=== PATIENT | female | born 1955 | race Caucasian/White ===

== ENCOUNTER → 2018-11-11 | Outpatient (CLI) | payer OTHER ==
--- NOTE | 2018-11-11 15:52 | XR ---
EXAMINATION TYPE: XR chest 2V DATE OF EXAM: 11/11/2018 COMPARISON: Prior chest x-ray 03/14/2012 HISTORY: Presurgical testing, history COPD TECHNIQUE: Frontal and lateral views of the chest are obtained. FINDINGS: There is no focal air space opacity, pleural effusion, or pneumothorax seen. The cardiac silhouette size is within normal limits. There is a spinal curvature as on prior. The aorta is dense . Prominent lung lines are again noted. There is flattening of hemidiaphragms. The osseous structures are intact. IMPRESSION: No acute cardiopulmonary process.
== END | disposition home or self-care (01) ==
LOC: LABWHC1 13:34
PROVIDERS: ATTEND Orthopaedic Surgery
DX: Z01.812 Encounter for preprocedural laboratory examination (principal); M16.12 Unilateral primary osteoarthritis, left hip; R06.02 Shortness of breath
CPT/HCPCS: 71046; 87070

== ENCOUNTER 2018-11-23 10:07 | Inpatient (IN) | payer OTHER ==
--- NOTE | 2018-11-23 08:41 | HP ---
HISTORY AND PHYSICAL CHIEF COMPLAINT: Left hip pain. HISTORY OF PRESENT ILLNESS: Patient is a 63-year-old female who presents with progressive left hip pain for the past several years. It has worsened recently. She is having a difficult time with weightbearing. She has been using a cane. She takes multiple medications for her back. PAST MEDICAL HISTORY: Significant for COPD, depression, arthritis, reflux disease and chronic back pain. PAST SURGICAL HISTORY: Significant for previous knee replacement in addition to a lumbar fusion and breast surgery. CURRENT MEDICATIONS: 1. Celexa. 2. Lyrica. 3. Oral morphine. 4. Seroquel. She has allergies to ROBAXIN. FAMILY HISTORY: Significant for cancer. SOCIAL HISTORY: Significant for tobacco use; however, she claims to have quit in December of 2017. REVIEW OF SYSTEMS: A 16 point review of systems otherwise reviewed and is noncontributory. PHYSICAL EXAMINATION: The patient is approximately 5 foot 8, 145 pounds of ectomorphic habitus. HEENT exam is nonfocal. Neck is supple. Passive motion left hip, flexion 70 degrees, external rotation with hip flex 30 degrees, internal rotation is 0 degrees with pain. She has diffuse anterior tenderness. She has moderate weakness with hip flexion and abduction. She does have an antalgic gait pattern. Her distal neurovascular appears intact in the left lower extremity. MRI report for 09/23/2018 of the left hip shows avascular necrosis with collapse of the femoral head. IMPRESSION: 1. Left hip stage IV avascular necrosis. 2. History of chronic obstructive pulmonary disease. 3. History of chronic low back pain, on long-term narcotics. RECOMMENDATIONS: I talked to the patient at length regarding her condition along with treatment options. This point she is quite symptomatic and opts to proceed with surgery. We will plan to proceed with left total hip arthroplasty utilizing a direct anterior approach. We will institute DVT prophylaxis postoperatively. MMODL / IJN: [id number] /
[~2018-11-23 10:07] MED LIST: ACETAMINOPHEN TAB 500 MG TAB PO ONE; HYDROmorphone 0.5 MG/0.5 ML SYRINGE IVP PRN; LIDOCAINE 1% 20 ML VIAL (10MG/ML) FOR IV START INTRADERMA PRN; MELOXICAM 7.5 MG TAB PO ONE; ONDANSETRON 4 MG/2 ML VIAL IVP ONE; TRANEXAMIC ACID 1,000 MG in SODIUM CHLORIDE 0.9% 100 ML IVPB ONE; ceFAZolin IN SWFI 2 GM/20 ML SYRINGE IVP ONE
[2018-11-23] MEDS ORDERED: LACTATED RINGERS 1,000 ML IV ONE ×2 (13:43→17:25)
[2018-11-23 14:17] LABS: Partial Thromboplastin Time 23.8 sec (22.0-30.0); Prothrombin Time 10.4 sec (9.0-12.0)
[2018-11-23] MEDS ORDERED: fentaNYL (PF) 50 MCG/ML 2 ML AMP ONE (15:34)
[2018-11-23] MEDS ORDERED: MIDAZOLAM 2 MG/2 ML VIAL ONE (15:34)
[2018-11-23] MEDS ORDERED: PROPOFOL 10 MG/ML 20 ML VIAL IV ONE (15:34)
[2018-11-23] MEDS ORDERED: TRANEXAMIC ACID 1,000 MG/10 ML VIAL ONE (15:34)
[2018-11-23] MEDS ORDERED: MORPHINE SULFATE (PF) 0.3 MG/0.3 ML SYR ONE (15:34)
[2018-11-23] MEDS ORDERED: KETAMINE 10 MG/ML 20 ML VIAL ONE (15:34)
[2018-11-23] MEDS ORDERED: diphenhydrAMINE 50 MG/ML 1 ML VIAL ONE (15:34)
[2018-11-23] MEDS ORDERED: SODIUM CHLORIDE 0.9% 100 ML BAG ONE (15:34)
[2018-11-23] MEDS ORDERED: NALOXONE 0.4 MG/ML 1 ML VIAL IV PRN (15:53)
[2018-11-23] MEDS ORDERED: diphenhydrAMINE 50 MG/ML 1 ML VIAL IVP PRN (15:53)
[2018-11-23] MEDS ORDERED: NALBUPHINE 10 MG/ML (1 ML AMP) IV PRN (15:53)
[2018-11-23] MEDS ORDERED: ceFAZolin 3,000 MG in SODIUM CHLORIDE 0.9% IRRIGATIO 3,000 ML IRRIGATION ONE (16:19)
[2018-11-23] MEDS ORDERED: ACETAMINOPHEN TAB 325 MG TAB PO PRN (17:29)
[2018-11-23] MEDS ORDERED: MAGNESIUM HYDROXIDE 2,400 MG/10 ML CUP PO PRN (17:29)
--- NOTE | 2018-11-23 17:53 | P.OP ---
Date of Procedure: 11/23/18 Preoperative Diagnosis: Left hip avascular necrosisstage IV Postoperative Diagnosis: Same Procedure(s) Performed: Left total hip arthroplastypress-fitanterior approach Implants: Depuy Corail size 12 standard press-fit femoral stem, 32 mm +5 cobalt chrome femoral head, 50 mm [place] acetabular shell with +4 neutral polyethylene liner. Anesthesia: spinal Surgeon: Shaji Stephenson Field Service Consultant #1: Semaj Moran Estimated Blood Loss (ml): 200 Pathology: other (Femoral head) Condition: stable Disposition: PACU Indications for Procedure: The patient's a 63-year-old female who presents with progressive left hip pain secondary to stage IV avascular necrosis. A discussion of the risks and benefits of operative intervention was made with patient. She opted to proceed with surgery. Operative risks to include infection, neurovascular injury, development of blood clots, possible fracture, possible persistence of leg length discrepancy, possible instability and need for subsequent procedures was discussed. Informed consent was obtained. Operative Findings: As below Description of Procedure: The patient was brought to the operating room, and after induction of spinal anesthesia was placed supine on the Rekha table. Positioning was checked with fluoroscopy. The left hip was then prepped and draped in a normal fashion. A 12 cm incision was then made starting 2 fingerbreadths distal and 3 finger breaths posterior to the ASIS in line with the proximal femur. The skin was incised sharply. Subcutaneous tissues were divided sharply. Electrocautery was used for hemostasis. The fascia was split in line with skin incision. The interval between the sartorius and tensor fascia marsha was then bluntly developed. The posterior fascia was opened with electrocautery. The lateral circumflex vessels were identified and cauterized prior to sectioning. A retractor was placed along the superior femoral neck as well as the anterior acetabular rim. A wide capsulotomy was performed. The neck cut was then made at a 45 angle to the shaft approximately 1 1/2 cm above the level of the lesser trochanter. The head was extracted. Attention was then paid towards preparing the acetabular. Anterior and posterior retractors were placed. The remaining capsular labral tissue sharply debrided clearly defining the acetabular margins. I began reaming with a 45 mm reamer taking care to initially medialize then reaming at 45 of abduction and 20 of anteversion. Sequential reaming is performed up to 49 mm. A trial 50 mm acetabular shell was inserted in the same orientation and was fully seated. There was good rim fit and stability. Positioning was checked with fluoroscopy. The final 50 mm acetabular shell was inserted again at 45 of abduction and 20 of anteversion. This was fully seated. There was good rim fit and stability. A 6.5 mm x 25 mm cancellus screws placed superiorly/posteriorly with good purchase. Again fluoroscopy was used to check the adequacy of placement. A +4 neutral polyethylene liner was gently impacted. Care was taken to avoid any soft tissue interposition. Pulsatile lavage was utilized. Attention was then paid towards preparing the proximal femur. The central region was cleared of soft tissue. A canal finder was used to find the femoral canal. Sequential broaching was performed up to size 12 taking care to lateralize proximally. A calcar mill was used to fashion the medial calcar. There was good rotational stability. A standard neck along with a 32 mm +5 head was placed. The hip was gently reduced. Fluoroscopy was used to check the adequacy of positioning along with leg lengths. I felt both were good. The hip was gently dislocated. The trial components were removed. The final size 12 collared standard press- fit femoral stem was inserted parallel to the posterior cortex. This was fully seated and there was good rotational stability. A 32 mm +5 cobalt chrome femoral head was placed. This was gently impacted. The hip was then gently reduced. Final fluoroscopic view showed adequate placement implant along with baptism of leg length. Stability was checked with 80 of external rotation and 60 of extension of the right hip. The wound was irrigated with sterile lavage. The fascia was closed with running 0 Vicryl suture. There was minimal drainage therefore a deep drain was not placed. The second dose of IV TXA was given. The subcutaneous tissues were reapproximated interrupted 2-0 Vicryl sutures. The skin was reapproximated with 3-0 subcuticular strata fix suture. Skin tape and adhesive was applied. A sterile dressing was applied. The patient was then awoken from sedation and transferred to recovery room in good condition. Blood loss was estimated at 200 mL. No complications were incurred. Sponge and needle counts were correct at the end of the case. Iglesia MCGHEE assisted during the major components is case to include exposure, bone r esection, implantation, and closure.
--- NOTE | 2018-11-23 18:34 | XR ---
PROCEDURE: XR Hip Limited LT - AP view DATE AND TIME: 11/23/2018 6:12 PM CLINICAL INDICATION: PHH; Status post hip surgery, assess surgical alignment TECHNIQUE: Single AP view COMPARISON: None FINDINGS: Left hip prosthesis in anatomic positioning alignment. Post procedure changes noted. No une xpected findings. IMPRESSION: Postoperative one view.
[2018-11-23 20:35] VITALS: BMI 19.0
[2018-11-23] MEDS: LACTATED RINGERS 1,000 ML IV SCH (20:37)
[2018-11-23] MEDS: SENNOSIDES-DOCUSATE SODIUM 1 EACH TAB PO SCH (20:38)
[2018-11-23] MEDS ORDERED: MORPHINE SULFATE ER 15 MG TABLET PO SCH (21:00)
[2018-11-23] MEDS ORDERED: MORPHINE SULFATE ER 30 MG TABLET PO SCH (21:00)
[2018-11-24] MEDS: HYDROmorphone 0.5 MG/0.5 ML SYRINGE IVP PRN ×2 (00:02→11:04)
[2018-11-24] MEDS ORDERED: ALBUTEROL NEBULIZED 2.5 MG/3 ML INHALATION PRN (00:12)
[2018-11-24] MEDS: MORPHINE SULFATE ER 30 MG TABLET PO SCH ×2 (01:00→11:57)
[2018-11-24] MEDS: guaiFENesin 600 MG TABLET.ER PO SCH ×3 (01:01→20:08)
[2018-11-24] MEDS: MORPHINE SULFATE ER 15 MG TABLET PO SCH ×2 (01:01→11:58)
[2018-11-24] MEDS: CITALOPRAM HYDROBROMIDE 20 MG TAB PO SCH ×2 (01:01→20:01)
[2018-11-24] MEDS: ceFAZolin IN SWFI 2 GM/20 ML SYRINGE IVP SCH ×2 (01:01→08:20)
[2018-11-24] MEDS: QUEtiapine 200 MG TAB PO SCH ×2 (01:03→20:08)
[2018-11-24] MEDS: LACTATED RINGERS 1,000 ML IV SCH ×2 (05:39→22:07)
[2018-11-24] MEDS: SYMBICORT 160-4.5 MCG INHALER INHALATION SCH ×2 (07:25→19:39)
[2018-11-24] MEDS: FAMOTIDINE 20 MG TAB PO SCH (08:22)
[2018-11-24] MEDS: MELOXICAM 7.5 MG TAB PO SCH (08:22)
[2018-11-24] MEDS: RIVAROXABAN 10 MG TAB PO SCH (08:22)
[2018-11-24] MEDS ORDERED: OXYMETAZOLINE 0.05% NASL SPRAY 1 SPRAY BOTTLE EA NOSTRIL PRN (09:00)
[2018-11-24 09:06] LABS: Basophils % (A) 0 %; Eosinophils # (A) 0.3 k/uL (0-0.7); Eosinophils % (A) 5 %; HCT 32.8 % (34.0-46.0); HGB 10.5 gm/dL (11.4-16.0); Hypochromasia Slight; Lymphocytes % (A) 30 %; MCH 28.9 pg (25.0-35.0); MCHC 31.9 g/dL (31.0-37.0); MCV 90.7 fL (80.0-100.0); Mean Platelet Volume 7.2; Monocytes # (A) 0.3 k/uL (0-1.0); Monocytes % (A) 5 %; Neutrophils % (A) 59 %; Platelet Count 267 k/uL (150-450); RBC 3.61 m/uL (3.80-5.40); RDW 14.6 % (11.5-15.5); WBC 6.8 k/uL (3.8-10.6)
--- NOTE | 2018-11-24 10:06 | P.PN ---
Progress Note - Text Progress Note Date: 11/24/18 Pt w/ complaints of severe pain. Denies pruritis. Denies headache. Currently taking her baseline morphine 45 mg q12 and breakthrough opioids. Back spinal site clean and dry A/P POD#1 s/p spinal w/ Duramorph - no complications of Duramorph - pain will be difficult to control given large baseline opioid consumption - multimodal analgesia
[2018-11-24] MEDS ORDERED: SODIUM CHLORIDE 0.9% 500 ML 500 ML IV ONE (10:09)
[2018-11-24] MEDS: traMADol 50 MG TAB PO PRN ×2 (10:12→20:01)
--- NOTE | 2018-11-24 12:11 | P.PN ---
Subjective Progress Note Date: 11/24/18 Principal diagnosis: Status post direct anterior left total hip arthroplasty Patient evaluated at bedside today, she's resting in her hospital bed. Patient does note some pain that turns into the left leg, more in the anterior and posterior thigh. She has been out of bed and in the chair most of the morning. I discussed with nursing, her blood pressure was low on a few different readings. She did receive a 500 mL bolus, her blood pressure has improved. Currently denies any chest pain or shortness of breath. Objective - Vital Signs Vital signs: Vital Signs Temp 99.1 F 11/24/18 07:00 Pulse 100 11/24/18 07:00 Resp 16 11/24/18 10:00 BP 102/60 11/24/18 11:05 Pulse Ox 96 11/24/18 07:00 Intake & Output 11/23/18 11/24/18 11/24/18 18:59 06:59 18:59 Intake Total 1651 Output Total 200 300 Balance 1451 -300 Intake: IV 1651 Output: Urine 300 Estimated Blood Loss 200 - Exam Left lower extremity: Incision is clean, dry, and intact. The exofin fusion tape is in good condition. There is minimal soft tissue swelling and ecchymosis surrounding the medial and lateral aspects of the incision. Calf is soft, no tenderness with palpation. Plantar flexion, dorsiflexion, EHL, FHL are intact. Sensory exam to light touch throughout the extremity is intact, dorsal pedis pulses 2+. - Labs CBC & Chem 7: 11/24/18 08:30 Labs: Abnormal Lab Results - Last 24 Hours (Table) 11/24/18 Range/Units 08:30 RBC 3.61 L (3.80-5.40) m/uL Hgb 10.5 L (11.4-16.0) gm/dL Hct 32.8 L (34.0-46.0) % Assessment and Plan Plan: Assessment: Postoperative day 1 status post direct anterior left total hip arthroplasty Acute blood loss anemia, expected surgical outcome Plan: Pain control, continue current medications GI and DVT prophylaxis, continue current medication Continue daily therapy Daily dressing changes/ice left lower extremity Encourage incentive spirometer Medical recommendations Discharge planning: Patient may require subacute rehab placement, we'll discuss with social work/case management to begin process. Time with Patient: Less than 30
--- NOTE | 2018-11-24 14:26 | XR ---
Limited left hip HISTORY: Left hip arthroplasty Single intraoperative image documents the procedure.
--- NOTE | 2018-11-24 14:26 | FL ---
Fluoroscopy HISTORY: Left hip arthroplasty 40 seconds fluoroscopy time supplied to the referring clinician. 1 intraoperative C-arm images docum ent the procedure. See dictated report from orthopedic surgery.
[2018-11-24] MEDS: HYDROmorphone 1 MG/ML 1 ML SYRINGE IVP PRN ×3 (14:36→21:11)
[2018-11-24] MEDS: SENNOSIDES-DOCUSATE SODIUM 1 EACH TAB PO SCH (20:08)
--- NOTE | 2018-11-24 23:44 | P.CONS ---
History of Present Illness - Reason for Consult Consult date: 11/24/18 Medical management - Chief Complaint Elective left total hip arthroplasty - History of Present Illness Patient is a 63-year-old female with a known history of COPD on home oxygen, chronic lower back pain, rheumatoid arthritis and anxiety/bipolar and depression was admitted to the hospital for elective left total hip arthroplasty. Patient tolerated the procedure well. Patient underwent left total hip arthroplasty anterior approach. Currently patient is still complaining of left hip pain. F airly controlled with pain medications. Postoperatively patient was hypotensive with SBP in 80s. Improved with IV fluids. Laboratory data reviewed 10.5. Patient uses 2.5 L when nausea cannula at home. Patient does have a previous history of smoking. Left hip x-ray postoperatively showed left hip prosthesis in the anatomic positioning alignment. no unexpected findings. Review of Systems Constitutional: Patient denies any fever or chills . No generalized weakness or weight loss. Abdomen: Patient denied nausea vomiting and diarrhea and abdominal pain. Cardiovascular: Patient denies any chest pain or short of breath no palpitations. Respiratory: patient denied any cough is from production. No shortness of breath Neurologic: Patient denied any numbness or tingling headache. Musculoskeletal: Patient denies any complaints of joint swelling or deformity. Left hip pain and thigh pain. Skin: Negative Psychiatric: Negative Endocrine: No heat or cold intolerance. No recent weight gain. Genitourinary: No dysuria or hematuria. All other 14 point ROS negative except the above Past Medical History Past Medical History: COPD, Rheumatoid Arthritis (RA) Additional Past Medical History / Comment(s): OXYGEN @ 2.5 LITERS ATC, HX RESPIRATORY FAILURE., DDD WITH LOWER BACK PAIN, INCONTINENT OF URINE-WEARS PADS., USES CANE OR WALKER. History of Any Multi-Drug Resistant Organisms: None Reported Past Surgical History: Back Surgery Additional Past Surgical History / Comment(s): BREAST BX, THROAT BX, RIGHT KNEE SURGERY, LAMINECTOMY WITH DECOMPRESSION & FUSION L-4 L-5. Past Anesthesia/Blood Transfusion Reactions: No Reported Reaction Additional Past Anesthesia/Blood Transfusion Reaction / Comm: "WOKE UP EARLY" Past Psychological History: Anxiety, Bipolar, Depression Smoking Status: Former smoker Past Alcohol Use History: None Reported Additional Past Alcohol Use History / Comment(s): QUIT SMOKING DECEMBER 2017, STARTED SMOKING AGE 15 (SMOKED 48 YEARS SMOKED 1PPD OR LESS. Past Drug Use History: None Reported, Marijuana Additional Drug Use History / Comment(s): NO CURRENT MARIJUANA - Past Family History Mother Family Medical History: Cancer Additional Family Medical History / Comment(s): PERITONEAL CANCER Father Family Medical History: Cancer Sister(s) Family Medical History: Cancer Additional Family Medical History / Comment(s): BREAST CANCER Medications and Allergies Home Medications Medication Instructions Recorded Confirmed Type Albuterol Inhaler [Ventolin Hfa 1 - 2 puff INHALATION RT-Q6H PRN 11/17/18 11/23/18 History Inhaler] Budesonide-Formot 160-4.5 Mcg 2 puff INHALATION RT-BID 11/17/18 11/23/18 History [Symbicort 160-4.5 Mcg Inhaler] Morphine Sulfate ER [Ms Contin] 15 mg PO Q12HR 11/17/18 11/23/18 History Morphine Sulfate ER [Ms Contin] 30 mg PO Q12HR 11/17/18 11/23/18 History Oxymetazoline 0.05% Nasl [place]atch 2 spray EA NOSTRIL BID PRN 11/17/18 11/23/18 History [Afrin 0.05% Nasal Hatch] guaiFENesin [Mucinex] 1,200 mg PO BID 11/17/18 11/23/18 History Citalopram Hydrobromide [CeleXA] 20 mg PO HS 11/23/18 11/23/18 History QUEtiapine FUMARATE [SEROquel] 200 mg PO HS 11/23/18 11/23/18 History Allergies Allergy/AdvReac Type Severity Reaction Status Date / Time methocarbamol [From Robaxin] Allergy Unknown Hives Verified 11/23/18 19:13 Albuterol Updraft AdvReac Unknown States Uncoded 11/17/18 11:07 updraft makes breathing worse. Physical Exam Vitals: Vital Signs Temp Pulse Resp BP BP Pulse Ox 11/24/18 14:05 98.5 F 99 16 116/76 99 11/24/18 14:00 16 11/24/18 11:05 102/60 11/24/18 10:01 91/57 11/24/18 10:00 16 11/24/18 08:00 16 11/24/18 07:00 99.1 F 100 16 87/53 96 11/24/18 05:41 16 11/24/18 03:52 16 11/24/18 02:53 98 11/24/18 02:00 98.2 F 92 18 121/71 99 11/24/18 00:00 18 99 11/23/18 22:56 86 119/73 97 11/23/18 22:41 88 130/70 98 11/23/18 22:26 90 116/71 98 11/23/18 22:11 91 150/71 96 11/23/18 22:00 16 11/23/18 21:56 86 131/80 99 11/23/18 21:41 90 141/59 98 11/23/18 21:28 99 156/60 99 11/23/18 21:12 84 116/64 99 11/23/18 20:57 98 134/59 99 11/23/18 20:41 85 128/75 100 11/23/18 20:26 98.0 F 79 133/74 100 11/23/18 20:00 18 11/23/18 19:27 98.1 F 83 18 122/71 97 11/23/18 18:57 98 F 76 18 147/79 100 11/23/18 18:19 85 16 127/62 100 11/23/18 18:04 81 16 131/60 100 11/23/18 17:49 97.3 F L 78 12 121/59 100 Intake and Output 11/23/18 11/24/18 11/24/18 22:59 06:59 14:59 Intake Total 1151 400 Output Total 200 300 Balance 951 -300 400 Intake: IV 1151 Oral 400 Output: Urine 300 Estimated Blood Loss 200 Other: # Voids 3 PHYSICAL EXAMINATION: Patient is lying in the bed comfortably, no acute distress, awake alert and oriented. Appears to be anxious.. HEENT: Normocephalic. Neck is supple. Pupils reactive. Nostrils clear. Oral cavity is moist. Ears reveal no drainage. Neck reveals no JVD, carotid bruits, or thyromegaly. CHEST EXAMINATION: Trachea is central. Symmetrical expansion. Bibasilar diminished air entry. Lung dowling clear to auscultation and percussion. CARDIAC: Normal S1, S2 with no gallops. No murmurs ABDOMEN: Soft. Bowel sounds normal. No organomegaly. No abdominal bruits. Extremities: reveal no edema. No clubbing or cyanosis Neurologically awake, alert, oriented x3 with well-coordinated movements. No focal deficits noted Skin: No rash or skin lesions. Psychiatric: Coperative. Nonsuicidal Musculoskeletal: No joint swelling or deformity. Normal range of motion. Left hip surgical site intact. Results CBC & Chem 7: 11/24/18 08:30 Labs: Abnormal Lab Results - Last 24 Hours (Table) 11/24/18 Range/Units 08:30 RBC 3.61 L (3.80-5.40) m/uL Hgb 10.5 L (11.4-16.0) gm/dL Hct 32.8 L (34.0-46.0) % Assessment and Plan Assessment: Left total hip arthroplasty postoperative day 1 COPD on home oxygen at 2.5 L Chronic low back pain Rheumatoid arthritis Chronic hypoxic respiratory failure secondary to COPD Anxiety/depression/ bipolar disorder Previous history of smoking History of marijuana use DVT prophylaxis Plan: Patient be continued on current pain medications and bowel regimen and DVT prophylaxis as per orthopedic surgery recommendations. Blood pressure improved with fluid bolus. Limit IV narcotic pain medication use. Continue with DuoNeb's, Symbicort and home medications. Oxygen therapy with another cannula. Encourage incentive spirometry and ambulation. We will follow up closely and further recommendations based on the clinical course. Thank you for your consult. Time with Patient: Greater than 30
[2018-11-25] MEDS: MORPHINE SULFATE ER 15 MG TABLET PO SCH ×2 (00:09→12:52)
[2018-11-25] MEDS: MORPHINE SULFATE ER 30 MG TABLET PO SCH ×2 (00:10→12:52)
[2018-11-25] MEDS: HYDROmorphone 1 MG/ML 1 ML SYRINGE IVP PRN ×5 (00:52→20:05)
[2018-11-25] MEDS: guaiFENesin 600 MG TABLET.ER PO SCH ×2 (08:06→22:48)
[2018-11-25] MEDS: RIVAROXABAN 10 MG TAB PO SCH (08:06)
[2018-11-25] MEDS: MELOXICAM 7.5 MG TAB PO SCH (08:06)
[2018-11-25] MEDS: traMADol 50 MG TAB PO PRN ×2 (08:06→17:11)
[2018-11-25] MEDS: FAMOTIDINE 20 MG TAB PO SCH (08:06)
[2018-11-25] MEDS: CITALOPRAM HYDROBROMIDE 20 MG TAB PO SCH (08:08)
[2018-11-25] MEDS: SYMBICORT 160-4.5 MCG INHALER INHALATION SCH ×2 (08:27→19:50)
[2018-11-25] MEDS: CITALOPRAM HYDROBROMIDE 10 MG TAB PO SCH (09:16)
--- NOTE | 2018-11-25 12:20 | P.PN ---
Subjective Progress Note Date: 11/25/18 Principal diagnosis: Status post direct anterior left total hip arthroplasty Patient evaluated at bedside today, she's resting in her hospital bed. Currently denies any chest pain or shortness of breath. Objective - Vital Signs Vital signs: Vital Signs Temp 98.5 F 11/25/18 07:00 Pulse 93 11/25/18 07:00 Resp 14 11/25/18 07:00 BP 87/53 11/25/18 07:00 Pulse Ox 97 11/25/18 07:00 Intake & Output 11/24/18 11/25/18 11/25/18 18:59 06:59 18:59 Intake Total 400 950 Balance 400 950 Intake: Intake, IV Titration 450 Amount Lactated Ringers 1,000 ml 450 @ 50 mls/hr IV .Q20H [facility]BERLY Rx#:[id number] Oral 400 500 Other: # Voids 3 3 - Exam Left lower extremity: Incision is clean, dry, and intact. The exofin fusion tape is in good condition. There is minimal soft tissue swelling and ecchymosis surrounding the medial and lateral aspects of the incision. Calf is soft, no tenderness with palpation. Plantar flexion, dorsiflexion, EHL, FHL are intact. Sensory exam to light touch throughout the extremity is intact, dorsal pedis pulses 2+. - Labs CBC & Chem 7: 11/24/18 08:30 Assessment and Plan Plan: Assessment: Postoperative day 2 status post direct anterior left total hip arthroplasty Acute blood loss anemia, expected surgical outcome Plan: Pain control, continue current medications GI and DVT prophylaxis, plan for discharge on Eliquis 2.5mg bid Continue daily therapy Daily dressing changes/ice left lower extremity Encourage incentive spirometer Medical recommendations Discharge planning: Planning for discharge to home tomorrow Time with Patient: Less than 30
[2018-11-25] MEDS: LACTATED RINGERS 1,000 ML IV SCH (17:13)
[2018-11-25] MEDS: QUEtiapine 200 MG TAB PO SCH (22:48)
[2018-11-25] MEDS: SENNOSIDES-DOCUSATE SODIUM 1 EACH TAB PO SCH (22:48)
[2018-11-26] MEDS: MORPHINE SULFATE ER 15 MG TABLET PO SCH ×2 (05:07→11:41)
[2018-11-26] MEDS: MORPHINE SULFATE ER 30 MG TABLET PO SCH ×2 (05:07→11:44)
[2018-11-26 08:03] LABS: Basophils % (A) 0 %; Eosinophils # (A) 0.3 k/uL (0-0.7); Eosinophils % (A) 4 %; HGB 10.3 gm/dL (11.4-16.0); Lymphocytes # (A) 1.5 k/uL (1.0-4.8); Lymphocytes % (A) 23 %; MCH 28.8 pg (25.0-35.0); MCHC 31.2 g/dL (31.0-37.0); MCV 92.5 fL (80.0-100.0); Mean Platelet Volume 7.2; Monocytes # (A) 0.3 k/uL (0-1.0); Monocytes % (A) 5 %; Neutrophils # (A) 4.2 k/uL (1.3-7.7); Neutrophils % (A) 66 %; Platelet Count 251 k/uL (150-450); RBC 3.57 m/uL (3.80-5.40); WBC 6.4 k/uL (3.8-10.6)
[2018-11-26] MEDS: SYMBICORT 160-4.5 MCG INHALER INHALATION SCH (08:19)
[2018-11-26] MEDS: guaiFENesin 600 MG TABLET.ER PO SCH (08:34)
[2018-11-26] MEDS: RIVAROXABAN 10 MG TAB PO SCH (08:34)
[2018-11-26] MEDS: FAMOTIDINE 20 MG TAB PO SCH (08:34)
[2018-11-26] MEDS: MELOXICAM 7.5 MG TAB PO SCH (08:34)
[2018-11-26] MEDS: CITALOPRAM HYDROBROMIDE 10 MG TAB PO SCH (08:35)
[2018-11-26 08:59] VITALS: BP 107/55; PULSE 107; RESP 14; TEMP 98.5
--- NOTE | 2018-11-26 09:40 | P.PN ---
Subjective Progress Note Date: 11/26/18 Principal diagnosis: Status post left total hip arthroplasty The patient notes improvement and has been ambulating with a walker. Objective - Vital Signs Vital signs: Vital Signs Temp 98.5 F 11/26/18 07:00 Pulse 107 H 11/26/18 07:00 Resp 14 11/26/18 07:00 BP 107/55 11/26/18 07:00 Pulse Ox 95 11/26/18 07:00 Intake & Output 11/25/18 11/26/18 11/26/18 18:59 06:59 18:59 Intake Total 600 80 Balance 600 80 Intake: IV 600 Lactated Ringers 1,000 ml 600 @ 50 mls/hr IV .Q20H [facility] Rx#:[id number] Oral 80 Other: # Voids 2 1 - Integumentary Integumentary Comment(s): Incision clean, dry, intact left hip - Musculoskeletal Musculoskeletal Comment(s): Nataly's negative left lower extremity, neurovascularly intact left lower extremity - Labs CBC & Chem 7: 11/26/18 07:16 Labs: Abnormal Lab Results - Last 24 Hours (Table) 11/26/18 Range/Units 07:16 RBC 3.57 L (3.80-5.40) m/uL Hgb 10.3 L (11.4-16.0) gm/dL Hct 33.0 L (34.0-46.0) % Assessment and Plan Assessment: Status post left total hip arthroplasty Plan: Discharge home today. Instructions as written. Xarelto 3 weeks. Weight bearing as tolerated with walker. Visiting nurse/therapy as prescribed. Follow-up 2 weeks. Time with Patient: Less than 30
== END 2018-11-26 13:20 | disposition home or self-care (01) | DRG 470 ==
LOC: 2ORMAIN 15:39 → 4SSUR 17:45
PROVIDERS: ADMIT Orthopaedic Surgery; ATTEND Orthopaedic Surgery
PROC: 0SRB0JA Replacement of Left Hip Joint with Synthetic Substitute, Uncemented, Open Approach (ICD-10-PCS; principal; 2018-11-23 13:00)
DX: M87.852 Other osteonecrosis, left femur (principal); D62 Acute posthemorrhagic anemia; J96.11 Chronic respiratory failure with hypoxia; I95.81 Postprocedural hypotension; K21.9 Gastro-esophageal reflux disease without esophagitis; J44.9 Chronic obstructive pulmonary disease, unspecified; R32 Unspecified urinary incontinence; M54.5 Low back pain; G89.29 Other chronic pain; M06.9 Rheumatoid arthritis, unspecified; F41.9 Anxiety disorder, unspecified; F31.9 Bipolar disorder, unspecified; F12.90 Cannabis use, unspecified, uncomplicated; Z96.659 Presence of unspecified artificial knee joint; Z99.81 Dependence on supplemental oxygen; Z98.1 Arthrodesis status; Z79.51 Long term (current) use of inhaled steroids; Z87.891 Personal history of nicotine dependence; Z80.3 Family history of malignant neoplasm of breast; Z88.8 Allergy status to other drugs, medicaments and biological substances
CPT/HCPCS: 73501; 85025; 85610; 85730; 86850; 86900; 86901; 88300; 94640

== ENCOUNTER → 2019-03-21 | Outpatient (CLI) | payer OTHER ==
[2019-03-21 13:00] LABS: INR 0.9 (<1.2)
[2019-03-21 13:06] LABS: Potassium 4.4 mmol/L (3.5-5.1)
[2019-03-21 13:08] LABS: Basophils # (A) 0.1 k/uL (0-0.2); Basophils % (A) 2 %; Eosinophils # (A) 0.7 k/uL (0-0.7); Eosinophils % (A) 10 %; HCT 37.8 % (34.0-46.0); HGB 11.7 gm/dL (11.4-16.0); Hypochromasia Moderate; Lymphocytes # (A) 2.8 k/uL (1.0-4.8); Lymphocytes % (A) 38 %; MCH 27.3 pg (25.0-35.0); MCHC 30.9 g/dL (31.0-37.0); MCV 88.4 fL (80.0-100.0); Mean Platelet Volume 6.1; Monocytes # (A) 0.4 k/uL (0-1.0); Monocytes % (A) 5 %; Neutrophils # (A) 3.2 k/uL (1.3-7.7); Neutrophils % (A) 44 %; Platelet Count 380 k/uL (150-450); RBC 4.27 m/uL (3.80-5.40); RDW 14.6 % (11.5-15.5); WBC 7.2 k/uL (3.8-10.6)
--- NOTE | 2019-03-21 17:51 | XR ---
EXAMINATION TYPE: XR chest 2V DATE OF EXAM: 03/21/2019 COMPARISON: 11/11/2018 HISTORY: Preop TECHNIQUE: Frontal and lateral views of the chest are obtained. FINDINGS: Findings are essentially unchanged. Linear area of increased attenuation at the left lung base and right midlung may represent scarring or atelectasis. Prominent lung lines suggest underlying COPD. Bone mineralization is reduced. There is no evident airspace disease, pneumothorax, or pleural effusion. There is an underlying scoliosis. Cardiac mediastinal silhouette, pulmonary vascularity an d usha are stable. Aorta is dense. Interstitium is increased. IMPRESSION: No acute cardiopulmonary process.
== END | disposition home or self-care (01) ==
LOC: LABPAT 11:42
PROVIDERS: ATTEND Orthopaedic Surgery
DX: Z01.818 Encounter for other preprocedural examination (principal); Z01.812 Encounter for preprocedural laboratory examination; M19.011 Primary osteoarthritis, right shoulder; R06.02 Shortness of breath
CPT/HCPCS: 36415; 71046; 80051; 85025; 85610; 87070; 93005

== ENCOUNTER 2019-04-04 06:31 | Inpatient (IN) | payer OTHER ==
[2019-03-28 15:40] VITALS: BMI 21.2
--- NOTE | 2019-04-03 10:00 | HP ---
HISTORY AND PHYSICAL CHIEF COMPLAINT: Right shoulder pain. HISTORY OF PRESENT ILLNESS: The patient is a 64-year-old right-hand dominant female who presents with right shoulder pain that has progressed over the past year. She is having pain with any use. She is also having night symptoms. She is on medications for chronic back problems. PAST MEDICAL HISTORY: Significant for COPD, emphysema, and depression. PAST SURGICAL HISTORY: Significant for previous knee surgery, lumbar fusion, and left total hip arthroplasty. CURRENT MEDICATIONS: Celexa, morphine, Lyrica, Seroquel, Neurontin. ALLERGIES: SHE HAS ALLERGIES TO ROBAXIN. FAMILY HISTORY: Significant for cancer. SOCIAL HISTORY: Significant for previous tobacco use. However, she quit in December of 2017. REVIEW OF SYSTEMS: Sixteen point review of systems otherwise reviewed and is noncontributory. PHYSICAL EXAMINATION: On examination, the patient is approximately 5 foot 8, 145 pounds of ectomorphic habitus. HEENT exam is nonfocal. Neck is supple. Active range of motion of the right shoulder. Forward elevation 150 degrees. External rotation with arm at side 60 degrees. Internal rotation to L3. She is tender about the anterior subacromial space and anterior glenohumeral joint. She has mild subacromial crepitus. Impingement test, Neer test are positive. Her distal neurovascular exam otherwise appears intact in the right upper extremity. X-rays of the right shoulder obtained in the office to include AP, outlet, and axillary views show AVN of the proximal humeral head with central collapse. IMPRESSION: Right proximal humeral head avascular necrosis. PLAN: I talked to the patient at length regarding her condition along with treatment options. At this point, she is quite symptomatic because of pain related to her shoulder. After thorough discussion, she opts to proceed with surgery. We will plan to proceed with right total shoulder arthroplasty. Risks and benefits were discussed at length in layman's terms. MMODL / IJN: [id number] /
[~2019-04-04 06:31] MED LIST changes: +DEXAMETHASONE SOD PHOSPHATE 10 MG/ML 1 ML VIAL IV ONE; +MIDAZOLAM 2 MG/2 ML VIAL IV PRN; +SCOPOLAMINE 1.5MG/72HR PATCH TRANSDERM ONE; -ceFAZolin IN SWFI 2 GM/20 ML SYRINGE IVP ONE
[2019-04-04] MEDS: LACTATED RINGERS 1,000 ML IV SCH (07:15)
[2019-04-04] MEDS ORDERED: MIDAZOLAM 2 MG/2 ML VIAL IVP ONE (07:38)
[2019-04-04] MEDS ORDERED: GLYCOPYRROLATE 0.2 MG/ML 2 ML VIAL ONE (07:58)
[2019-04-04] MEDS ORDERED: NEOSTIGMINE 1 MG/ML 10 ML VIAL ONE (07:58)
[2019-04-04] MEDS ORDERED: DEXAMETHASONE SOD PHOSPHATE 4 MG/ML 1 ML VIAL ONE (07:58)
[2019-04-04] MEDS ORDERED: fentaNYL (PF) 50 MCG/ML 2 ML AMP ONE (07:58)
[2019-04-04] MEDS ORDERED: TRANEXAMIC ACID 1,000 MG/10 ML VIAL ONE (07:58)
[2019-04-04] MEDS ORDERED: LIDOCAINE 1% INJ 10MG/ML (20 ML MDV) ONE (07:58)
[2019-04-04] MEDS ORDERED: ROPIVACAINE 5 MG/ML 30 ML VIAL ONE (07:58)
[2019-04-04] MEDS ORDERED: PHENYLEPHRINE-0.9% NACL SYG 1 MG/10 ML SYRINGE ONE (07:58)
[2019-04-04] MEDS ORDERED: PROPOFOL 10 MG/ML 20 ML VIAL IV ONE (07:58)
[2019-04-04] MEDS ORDERED: ROCURONIUM BROMIDE 10 MG/ML 10 ML VIAL IV ONE (07:58)
[2019-04-04] MEDS ORDERED: SUCCINYLCHOLINE CHLORIDE 100 MG/5 ML SYR IV ONE (07:58)
[2019-04-04] MEDS ORDERED: SODIUM CHLORIDE 0.9% 100 ML BAG ONE (07:58)
[2019-04-04] MEDS ORDERED: ceFAZolin 3,000 MG in SODIUM CHLORIDE 0.9% IRRIGATIO 3,000 ML IRRIGATION ONE (08:39)
[2019-04-04] MEDS ORDERED: LACTATED RINGERS 1,000 ML IV ONE (09:39)
[2019-04-04] MEDS ORDERED: SENNOSIDES-DOCUSATE SODIUM 1 EACH TAB PO PRN (09:46)
[2019-04-04] MEDS ORDERED: ONDANSETRON 4 MG/2 ML VIAL IVP PRN (09:46)
--- NOTE | 2019-04-04 10:08 | P.OP ---
Date of Procedure: 04/04/19 Preoperative Diagnosis: Right humeral head avascular necrosis Postoperative Diagnosis: Same Procedure(s) Performed: Right total shoulder arthroplasty Implants: [employer] size 12 press-fit humeral stem, 44 x 18 mm eccentric humeral head, 40 mm pegged cemented glenoid component. Anesthesia: ZACHERY Surgeon: Shaji Stephenson Sourcing Intern #1: Semja Moran Estimated Blood Loss (ml): 100 Pathology: other (Humeral head) Condition: stable Disposition: PACU Indications for Procedure: The patient is a 64-year-old [id number] female who presents with progressive right shoulder pain secondary to humeral head avascular necrosis. A discussion of the risks and benefits of operative intervention versus continued conservative measures was made with the patient. She opted to proceed with surgery. Operative options were discussed and she opted to proceed with total shoulder arthroplasty. Specific risks to include infection, fracture, neurovascular injury, development of blood clots, possible instability, possible loosening and need for subsequent procedures was discussed. Informed consent was obtained. Operative Findings: As below Description of Procedure: The patient was brought to the operating room, and after induction of general anesthesia was placed in the beachchair position. The bony prominences were appropriately padded. The right upper extremity was prepped and draped in normal fashion. A deltopectoral incision was then made lateral to the coracoid process extending approximately 12 cm. The skin was incised sharply. Subcutaneous tissues were divided bluntly. Electrocautery was used for hemostasis. The deltopectoral interval was identified and the cephalic vein gently retracted laterally with the deltoid. Subdeltoid adhesions were bluntly dissected. A self-retaining retractor was placed. The clavipectoral fascia was opened and the conjoined tendon gently retracted medially. The upper one third of the pectoralis major was released to help facilitate exposure. The biceps was identified and the sheath was opened. The rotator interval was opened. The biceps was tenotomized and allowed to retract distally. The lesser tuberosity osteotomy was performed with a small sagittal saw. This completed with an osteotome. The humeral head was then exposed releasing the capsule off the humeral neck. The shoulder was gently dislocated. A starting hole was made in the head in line with the humeral shaft. The shaft was reamed by hand up to 12 mm. There is good distal chatter. The cutting guide was placed planning on 8 cut flush with the rotator cuff insertion and 30 of retroversion. The cutting block was pinned in place. The humeral head cut was then made. This measured most appropriately at 44 x 18 mm. A posterior glenoid retractor was placed. The glenoid was then exposed releasing the labrum from the 12-6 o'clock position. Residual labral tissue was removed. The glenoid sized most appropriate 40 mm. A guidewire was then inserted planning on the appropriate version. The glenoid was reamed down to a bleeding bony surface. The central pedicle was drilled. The alignment guide was placed in the peripheral peg holes drilled. The trial size 40 mm glenoid was placed and was fully seated. There was good anterior to posterior and inferior to superior fit. The trial component was removed. Pulsatile lavage was utilized. The bony surface was dried. The peripheral peg holes were then pressurized with cement utilizing a syringe. Excess cement was removed. A central peg glenoid was then placed and was fully seated. This was gently impacted. This was held in place until the cement had sufficiently hardened. Attention was then paid again towards preparing the proximal humerus. The appropriate broach was placed in 30 of retroversion and was fully seated. An eccentric 44 x 18 mm humeral head was placed. The shoulder was gently reduced. It was taken through a range of motion. It was felt to be stable in flexion and extension with internal and external rotation. I felt there was adequate mu-ism of soft tissue tension. The shoulder was gently dislocated. The trial components were then removed. A #2 Ethibond was placed laterally for reattachment of the lesser tuberosity. The humeral stem was inserted in 30 of retroversion and was fully seated. There was good rotational stability. The eccentric 44 x 18 mm humeral head was gently impacted. The shoulder was then gently reduced and taken through range of motion and was felt to be stable. Pulsatile lavage was utili zed. Lesser tuberosity was reattached utilizing #2 Ethibond suture. The rotator interval was closed with #2 Ethibond suture. She had minimal drainage at this point therefore a deep drain was not placed. The deltopectoral interval was closed with interrupted 2-0 Vicryl sutures. The subcu tissues were reapproximated with interrupted 2-0 Vicryl sutures. The skin was reapproximated with 3-0 subcuticular Prolene suture. Steri-Strips were applied. A sterile dressing was applied in addition to a sling. The patient was then awoken from general anesthesia and transferred to recovery room in good condition. Blood loss was estimated at and 100 mL. No complications were incurred. Sponge and needle counts were correct at the end the case. Iglesia MCGHEE assisted during the major components of the case to include exposure, resection, implantation, and closure.
[2019-04-04] MEDS ORDERED: OXYMETAZOLINE 0.05% NASL SPRAY 1 SPRAY BOTTLE EA NOSTRIL PRN (14:34)
[2019-04-04] MEDS: HYDROmorphone 0.5 MG/0.5 ML SYRINGE IVP PRN (14:35)
--- NOTE | 2019-04-04 15:29 | XR ---
Right shoulder HISTORY: Status post right shoulder arthroplasty Single frontal view of the right shoulder Patient is status post right shoulder arthroplasty. There is anatomic alignment in the frontal view. Right lung apex as visualized is normal. Lucency is present in the soft tissues. IMPRESSION: Orthopedic follow-up.
[2019-04-04] MEDS: GABAPENTIN 300 MG CAP PO SCH ×2 (16:35→20:35)
[2019-04-04] MEDS ORDERED: ALBUTEROL NEBULIZED 2.5 MG/3 ML INHALATION PRN (19:44)
[2019-04-04] MEDS: SYMBICORT 160-4.5 MCG INHALER INHALATION SCH (19:55)
[2019-04-04] MEDS ORDERED: ALBUTEROL NEBULIZED 2.5 MG/3 ML INHALATION SCH (20:00)
--- NOTE | 2019-04-04 20:26 | CONS ---
CONSULTATION DATE OF SERVICE: 04/04/2019 REASON FOR CONSULTATION: Advice regarding COPD and other multiple medical issues, requested by Dr. Stephenson. HISTORY OF PRESENT ILLNESS: This 64-year-old woman with a past medical history of multiple medical problems, including COPD, history of GERD, rheumatoid arthritis, history of chronic hypoxic respiratory failure, anxiety, bipolar depression, history of nicotine dependence, being followed by Dr. Chino in the outpatient setting, underwent right total shoulder arthroplasty by Dr. Stephenson. There is no history of any chest pain, history of history of palpitations, no history of headaches, loss of consciousness, nausea, vomiting, diarrhea. Patient complains of some wheezing at this time. PAST MEDICAL HISTORY: 1. COPD. 2. GERD. 3. Rheumatoid arthritis. 4. Home oxygen at 2 L. 5. Anxiety, bipolar, depression. HOME MEDICATIONS: 1. Neurontin 300 mg p.o. t.i.d. 2. Celexa 30 mg each morning. 3. Mucinex 1200 mg p.o. b.i.d. 4. Seroquel 200 mg at bedtime. 5. Afrin 0.5 two sprays b.i.d. p.r.n. 6. MS Contin 30 mg p.o. b.i.d. and 15 mg p.o. b.i.d. 7. Symbicort 160/4.5 two puffs b.i.d. 8. Ventolin HFA 1-2 puffs q.6 p.r.n. ALLERGIES: ROBAXIN. FAMILY HISTORY: History of peritoneal cancer in the family. SOCIAL HISTORY: History of smoking, continued ongoing. History of THC. REVIEW OF SYSTEMS: ENT: No diminished hearing. No diminished vision. CARDIOVASCULAR SYSTEM: No angina, palpitations. RESPIRATORY SYSTEM: No cough, hemoptysis. GI: No nausea, vomiting. : No dysuria or retention. NERVOUS SYSTEM: No numbness, weakness. ALLERGY/IMMUNOLOGY: No asthma, hayfever. MUSCULOSKELETAL: As mentioned earlier. HEMATOLOGY/ONCOLOGY: No history of anemia. ENDOCRINE: No history of diabetes, hypothyroidism. CONSTITUTIONAL: As mentioned earlier. DERMATOLOGY: Negative. RHEUMATOLOGY: Negative. PSYCHIATRY: As mentioned earlier. PHYSICAL EXAMINATION: Patient alert and oriented x3. Pulse is 97, blood pressure 124/73, respiration 12, temperature 98 degrees, pulse ox 93% on 2 L. HEENT: Conjunctivae normal. NECK: No jugular venous distention. CARDIOVASCULAR SYSTEM: S1, S2 muffled. RESPIRATORY SYSTEM: Breath sounds diminished at the bases. A few scattered rhonchi and crackles. Expiratory wheezing also present. ABDOMEN: Soft, non-tender. No mass palpable. LEGS: No edema. No swelling. NERVOUS SYSTEM: Higher functions as mentioned earlier. Moves all 4 limbs. No focal motor or sensory deficit. LYMPHATICS: No lymph node palpable in neck, axillae or groin. SKIN: No ulcer, rash, bleeding. JOINTS: No active deforming arthropathy. SHOULDER: Status post surgery. LABS: Labs recently done showed CBC within normal limits. Coags within normal limits. The chemistry is also within normal limits. ASSESSMENT: 1. Status post right shoulder arthroplasty. 2. Chronic obstructive pulmonary disease. 3. Continued ongoing nicotine dependence. 4. Gastroesophageal reflux disease. 5. History of rheumatoid arthritis. 6. Chronic hypoxic respiratory failure, on 2 liters home oxygen. 7. Urinary incontinence. 8. History of degenerative joint disease, back pain. 9. History of anxiety, bipolar, depression. 10.Chronic pain syndrome. RECOMMENDATIONS AND DISCUSSION: In this 64-year-old woman who presented with multiple medical issues, at this time I recommend continuing the current medications, continuing symptomatic treatment. Otherwise at this time I recommend resuming the home medications. Bronchodilators. Ensure oxygenation. DVT prophylaxis. Incentive spirometry. Will follow the patient closely with you. The patient may be asked to follow up with Dr. Chino closely after discharge. Thank you Dr. Stephenson, for letting us participate in the care of this patient. Continue the home medications. MMODL / IJN: [id number] / MTDD
[2019-04-04] MEDS: MORPHINE SULFATE ER 15 MG TABLET PO SCH (20:35)
[2019-04-04] MEDS: MORPHINE SULFATE ER 30 MG TABLET PO SCH (20:35)
[2019-04-04] MEDS: QUEtiapine 200 MG TAB PO SCH (20:35)
[2019-04-04] MEDS: guaiFENesin 600 MG TABLET.ER PO SCH (20:35)
[2019-04-04] MEDS: HYDROmorphone 1 MG/ML 1 ML SYRINGE IVP PRN (22:12)
[2019-04-04] MEDS: CALCIUM CARBONATE 500 MG CHEWABLE PO PRN (23:29)
[2019-04-05] MEDS: HYDROmorphone 1 MG/ML 1 ML SYRINGE IVP PRN ×5 (04:23→17:18)
[2019-04-05] MEDS: LACTATED RINGERS 1,000 ML IV SCH (05:22)
[2019-04-05] MEDS: MORPHINE SULFATE ER 30 MG TABLET PO SCH ×2 (07:55→20:49)
[2019-04-05] MEDS: MORPHINE SULFATE ER 15 MG TABLET PO SCH ×2 (07:55→20:48)
[2019-04-05] MEDS: GABAPENTIN 300 MG CAP PO SCH ×3 (07:56→22:26)
[2019-04-05] MEDS: guaiFENesin 600 MG TABLET.ER PO SCH ×2 (07:56→20:48)
[2019-04-05] MEDS: CITALOPRAM HYDROBROMIDE 20 MG TAB PO SCH (07:56)
[2019-04-05 08:49] LABS: Basophils # (A) 0.1 k/uL (0-0.2); Basophils % (A) 1 %; Eosinophils % (A) 0 %; HCT 31.7 % (34.0-46.0); Hypochromasia Moderate; Lymphocytes # (A) 1.9 k/uL (1.0-4.8); Lymphocytes % (A) 15 %; MCH 27.6 pg (25.0-35.0); MCHC 31.2 g/dL (31.0-37.0); MCV 88.4 fL (80.0-100.0); Mean Platelet Volume 6.5; Monocytes # (A) 0.6 k/uL (0-1.0); Monocytes % (A) 5 %; Neutrophils # (A) 9.3 k/uL (1.3-7.7); Neutrophils % (A) 77 %; Platelet Count 379 k/uL (150-450); RBC 3.59 m/uL (3.80-5.40); RDW 14.8 % (11.5-15.5); WBC 12.1 k/uL (3.8-10.6)
[2019-04-05 08:52] LABS: HGB 9.9 gm/dL (11.4-16.0)
[2019-04-05] MEDS: SYMBICORT 160-4.5 MCG INHALER INHALATION SCH ×2 (09:10→20:17)
--- NOTE | 2019-04-05 11:00 | P.PN ---
Subjective Progress Note Date: 04/05/19 Principal diagnosis: Status post right total shoulder arthroplasty Patient evaluated at bedside today, she is resting comfortably. She is having some increase in pain throughout the shoulder. Patient is very concerned about being discharged home, she has no help at home with her being in the current state he is. She is requesting being discharged to subacute rehab. Objective - Vital Signs Vital signs: Vital Signs Temp 98.5 F 04/05/19 07:00 Pulse 83 04/05/19 07:00 Resp 16 04/05/19 07:00 BP 111/68 04/05/19 07:00 Pulse Ox 97 04/05/19 07:00 Intake & Output 04/04/19 04/05/19 04/05/19 18:59 06:59 18:59 Intake Total 1751 50 Output Total 100 Balance 1651 50 Weight 62.142 kg Intake: IV 1751 Intake, IV Titration 50 Amount ceFAZolin 2 gm In Sodium 50 Chloride 0.9% 50 ml @ 100 mls/hr IVPB Q8HR AMBERLY Rx# :[id number] Output: Estimated Blood Loss 100 Other: Voiding Method Toilet # Voids 3 3 - Exam Right upper extremity: Incision is clean, dry and intact, stairs are good position and condition. Minimal ecchymosis and soft tissue swelling noted. Distal neurovascular exam is intact - Labs CBC & Chem 7: 04/05/19 07:21 Labs: Abnormal Lab Results - Last 24 Hours (Table) 04/05/19 Range/Units 07:21 WBC 12.1 H (3.8-10.6) k/uL RBC 3.59 L (3.80-5.40) m/uL Hgb 9.9 L D (11.4-16.0) gm/dL Hct 31.7 L (34.0-46.0) % Neutrophils # 9.3 H (1.3-7.7) k/uL Assessment and Plan Plan: Assessment: Postoperative day #1 status post right total shoulder arthroplasty Plan: Pain control, continue current medication, IV pain medication okay for breakthrough pain GI and DVT prophylaxis, continue current medication Wound care instructions discussed Utilize arm sling Medical recommendations This patient's current status at home and her need for assistance with ADLs, I recommend subcu rehab placement. This has been discussed with both case management and social work for authorization. Time with Patient: Less than 30
--- NOTE | 2019-04-05 20:08 | PN ---
PROGRESS NOTE DATE OF SERVICE: 04/05/2019 This 64-year-old woman was admitted with right shoulder arthroplasty. The patient is still complaining of significant pain. The patient also has some significant difficulties in activities of daily living and patient also reports that the patient has been disabled from both mental and as well as physical point of view. The patient does not get any help at all at home. The patient also has multiple comorbidities including COPD, history of rheumatoid arthritis and chronic hypoxic respiratory failure on home O2 as well. Patient being closely monitored at this time. The patient also had a BMI of 20.8 indicating some mild to moderate protein calorie malnutrition as well. PAST MEDICAL HISTORY: Reviewed. REVIEW OF SYSTEM: CARDIOVASCULAR: No angina or palpitations. RESPIRATORY: As mentioned earlier. GASTROINTESTINAL: As mentioned earlier. : No dysuria. NERVOUS SYSTEM: As mentioned earlier. MUSCULOSKELETAL: As mentioned earlier. MEDICATIONS: Reviewed. Ventolin, Symbicort, Tums, Celexa, Neurontin, Mucinex, Dilaudid, lactated Ringer's, MS Contin, Zofran, Afrin, Seroquel and Senokot-S. PHYSICAL EXAMINATION: Patient is alert, oriented x3. Pulse 83. Blood pressure 111/60, respirations 16, temperature 98.4, pulse ox 97% on 2 L. HEENT: Conjunctivae normal. NECK: No JVD. CARDIOVASCULAR: S1, S2 muffled. RESPIRATIONS: Breath sounds diminished in the bases. A few scattered rhonchi and crackles. ABDOMEN: Soft, nontender. LEGS: No edema. NERVOUS SYSTEM: No focal deficits. Examination of the right shoulder status post arthroplasty. LAB STUDIES: WBC 12.2, hemoglobin 9.9. ASSESSMENT: 1. Status post right shoulder arthroplasty. 2. Chronic obstructive pulmonary disease. 3. Continued ongoing nicotine dependence. 4. Gastroesophageal reflux disease. 5. History of rheumatoid arthritis. 6. Chronic hypoxic respiratory failure on 2 L home O2. 7. Poor social support. 8. Urine incontinence. 9. History of degenerative joint disease, back pain. 10.History of anxiety, bipolar depression. 11.Chronic pain syndrome. RECOMMENDATIONS AND DISCUSSION: I recommend to continue current medications, management and symptomatic treatment. Otherwise, at this time, I would recommend follow the patient closely. pier worker and Case Management to evaluate the home situation. Otherwise, continue the bronchodilators. Continue with the DVT prophylaxis. The rest of the recommendations per Orthopedic surgery. Further recommendations to follow. Continue the pain medications. MMODL / IJN: [id number] /
[2019-04-05] MEDS: CALCIUM CARBONATE 500 MG CHEWABLE PO PRN (20:48)
[2019-04-05] MEDS: QUEtiapine 200 MG TAB PO SCH (20:49)
[2019-04-05] MEDS: HYDROmorphone 0.5 MG/0.5 ML SYRINGE IVP PRN (21:08)
[2019-04-06] MEDS: HYDROmorphone 1 MG/ML 1 ML SYRINGE IVP PRN ×2 (00:05→13:26)
[2019-04-06] MEDS: HYDROmorphone 0.5 MG/0.5 ML SYRINGE IVP PRN ×4 (03:58→19:34)
[2019-04-06] MEDS: LACTATED RINGERS 1,000 ML IV SCH (06:51)
[2019-04-06 07:25] VITALS: RESP 16
[2019-04-06] MEDS: MORPHINE SULFATE ER 30 MG TABLET PO SCH ×2 (08:12→20:18)
[2019-04-06] MEDS: MORPHINE SULFATE ER 15 MG TABLET PO SCH ×2 (08:12→20:17)
[2019-04-06] MEDS: guaiFENesin 600 MG TABLET.ER PO SCH ×2 (08:12→20:17)
[2019-04-06] MEDS: GABAPENTIN 300 MG CAP PO SCH ×3 (08:12→21:13)
[2019-04-06] MEDS: CITALOPRAM HYDROBROMIDE 20 MG TAB PO SCH (08:12)
[2019-04-06] MEDS: SYMBICORT 160-4.5 MCG INHALER INHALATION SCH ×2 (08:36→16:55)
--- NOTE | 2019-04-06 10:30 | P.ANPRN ---
Procedure Note - Anesthesia - Nerve Block Performed Right Interscalene Single Time Out Performed: Yes Date of Procedure: 04/06/19 Procedure Start Time: 10:48 Procedure Stop Time: 10:49 Location of Patient Procedure: PreOp Indication: Acute Post-Operative Pain, Requested by Surgeon Sedation Type: Sedate with meaningful contact maintained Preparation: Sterile Prep Position: Supine Needle Types: Pajunk Needle Gauge: 21 Ultrasound used to visualize needle placement: Yes Ultrasound used to observe medication spread: Yes Blood Aspirated: No Pain Paresthesia on Injection Noted: No Resistance on Injection: Normal Image Stored and Saved: Yes Events: Uneventful and Well Tolerated (ropi .5% 20 cc plus dexamethasone 4mg)
--- NOTE | 2019-04-06 12:57 | P.PN ---
Subjective Progress Note Date: 04/06/19 Principal diagnosis: Status post right total shoulder arthroplasty Patient evaluated at bedside today, she is resting comfortably. Patient is very concerned about being discharged home, she has no help at home with her being in the current state he is. She is requesting being discharged to subacute rehab. Objective - Vital Signs Vital signs: Vital Signs Temp 98.1 F 04/06/19 07:00 Pulse 87 04/06/19 07:00 Resp 16 04/06/19 07:00 BP 115/66 04/06/19 07:00 Pulse Ox 90 L 04/06/19 07:00 Intake & Output 04/05/19 04/06/19 04/06/19 18:59 06:59 18:59 Other: # Voids 3 1 - Exam Right upper extremity: Incision is clean, dry and intact, stairs are good position and condition. Minimal ecchymosis and soft tissue swelling noted. Distal neurovascular exam is intact - Labs CBC & Chem 7: 04/05/19 07:21 Assessment and Plan Plan: Assessment: Postoperative day #2 status post right total shoulder arthroplasty Plan: Pain control, continue current medication, IV pain medication okay for breakthrough pain GI and DVT prophylaxis, continue current medication Wound care instructions discussed Utilize arm sling Medical recommendations This patient's current status at home and her need for assistance with ADLs, I recommend subcu rehab placement. This has been discussed with both case management and social work for authorization. Time with Patient: Less than 30
[2019-04-06] MEDS: CALCIUM CARBONATE 500 MG CHEWABLE PO PRN (15:42)
[2019-04-06 17:01] LABS: ALT 19 U/L (9-52); AST 22 U/L (14-36); African American GFR (CKD) >90 (>60 ml/min/1.73 sqM); Albumin 3.4 g/dL (3.5-5.0); Alkaline Phosphatase 66 U/L (38-126); Anion Gap 2 mmol/L; Blood Urea Nitrogen 10 mg/dL (7-17); Calcium 8.8 mg/dL (8.4-10.2); Carbon Dioxide 33 mmol/L (22-30); Chloride 105 mmol/L (98-107); Glucose 104 mg/dL (74-99); Potassium 3.9 mmol/L (3.5-5.1); Sodium 140 mmol/L (137-145); Total Bilirubin 0.2 mg/dL (0.2-1.3); Total Protein 5.9 g/dL (6.3-8.2)
--- NOTE | 2019-04-06 18:41 | PN ---
PROGRESS NOTE DATE OF SERVICE: 04/06/2019 This 64-year-old woman who was admitted after right shoulder arthroplasty is being closely monitored. Patient is complaining of extreme pain, 7 to 10 out of 10. Patient is still on IV Dilaudid. Anesthesia has been consulted for pain management. Past medical history reviewed. PHYSICAL EXAMINATION: Patient is alert, oriented x3. Pulse is 85, blood pressure 121/72, respirations 16, temperature 98.4, pulse ox 94% on room air. HEENT: Conjunctivae normal. NECK: No jugular venous distention. CARDIOVASCULAR SYSTEM: S1, S2 muffled. RESPIRATORY SYSTEM: Breath sounds diminished at the bases. No rhonchi. No crackles. ABDOMEN: Soft, non-tender. LEGS: No edema. No swelling. NERVOUS SYSTEM: No focal deficit. EXAMINATION OF THE RIGHT SHOULDER: Right shoulder arthroplasty. LABS: WBC 12.2, hemoglobin 9.9. ASSESSMENT: 1. Status post right shoulder arthroplasty. 2. Chronic obstructive pulmonary disease. 3. Continued ongoing right shoulder pain. 4. Continued ongoing nicotine dependence. 5. Gastroesophageal reflux disease. 6. History of rheumatoid arthritis. 7. Chronic hypoxic respiratory failure, on 2 L of home oxygen. 8. Poor social support. 9. Urinary incontinence. 10.History of degenerative joint disease and back pain. 11.History of anxiety, bipolar, depression. 12.Chronic pain syndrome. RECOMMENDATIONS AND DISCUSSION: I recommend to continue current medications, continue symptomatic treatment. Consider the patient for rehab because of the multiple complex medical issues and the patient's poor social support, especially the , who needs social and mental support, according to her. Otherwise, we will continue to monitor. I would also recommend repeat labs, including a chest x-ray, to complete the workup. Rest of the recommendations per Dr. Stephenson. Further recommendations to follow. MMODL / IJN: [id number] /
[2019-04-06] MEDS: QUEtiapine 200 MG TAB PO SCH (20:18)
[2019-04-07] MEDS: HYDROmorphone 0.5 MG/0.5 ML SYRINGE IVP PRN ×3 (02:40→10:46)
[2019-04-07] MEDS: LACTATED RINGERS 1,000 ML IV SCH (03:31)
[2019-04-07 07:44] VITALS: BP 118/60; PULSE 95; TEMP 98.7
[2019-04-07 07:51] LABS: Basophils # (A) 0.1 k/uL (0-0.2); Basophils % (A) 1 %; Eosinophils # (A) 0.8 k/uL (0-0.7); Eosinophils % (A) 8 %; HCT 33.2 % (34.0-46.0); HGB 10.6 gm/dL (11.4-16.0); Hypochromasia Slight; Lymphocytes # (A) 2.4 k/uL (1.0-4.8); Lymphocytes % (A) 25 %; MCHC 31.9 g/dL (31.0-37.0); MCV 87.7 fL (80.0-100.0); Mean Platelet Volume 6.1; Monocytes # (A) 0.5 k/uL (0-1.0); Monocytes % (A) 5 %; Neutrophils # (A) 5.9 k/uL (1.3-7.7); Neutrophils % (A) 60 %; Platelet Count 377 k/uL (150-450); RBC 3.78 m/uL (3.80-5.40); RDW 14.8 % (11.5-15.5); WBC 9.8 k/uL (3.8-10.6)
[2019-04-07] MEDS: GABAPENTIN 300 MG CAP PO SCH (08:31)
[2019-04-07] MEDS: MORPHINE SULFATE ER 15 MG TABLET PO SCH (08:31)
[2019-04-07] MEDS: MORPHINE SULFATE ER 30 MG TABLET PO SCH (08:31)
[2019-04-07] MEDS: CITALOPRAM HYDROBROMIDE 20 MG TAB PO SCH (08:31)
[2019-04-07] MEDS: guaiFENesin 600 MG TABLET.ER PO SCH (08:31)
[2019-04-07] MEDS: SYMBICORT 160-4.5 MCG INHALER INHALATION SCH (09:07)
--- NOTE | 2019-04-07 09:31 | XR ---
EXAMINATION TYPE: XR chest 1V portable DATE OF EXAM: 04/07/2019 COMPARISON: 03/21/2019 HISTORY: Shortness of breath TECHNIQUE: Single frontal view of the chest is obtained. FINDINGS: Subsegmental changes at the left lung base. Postsurgical change right shoulder. Arthropath y of the AC joints. Scoliosis and degenerative changes spine with suggestion of possible previous gerhard alana in the lumbar region. No overt failure or pneumothorax. IMPRESSION: Basilar atelectasis or infiltrate on the left correlate clinically.
--- NOTE | 2019-04-07 09:44 | P.PN ---
Subjective Progress Note Date: 04/07/19 Principal diagnosis: Status post right total shoulder arthroplasty Patient evaluated at bedside today, she is resting comfortably Objective - Vital Signs Vital signs: Vital Signs Temp 98.7 F 04/07/19 07:42 Pulse 95 04/07/19 07:42 Resp 16 04/07/19 07:42 BP 118/60 04/07/19 07:42 Pulse Ox 90 L 04/07/19 07:42 Intake & Output 04/06/19 04/07/19 04/07/19 18:59 06:59 18:59 Intake Total 960 Balance 960 Intake: Oral 960 Other: Voiding Method Toilet # Voids 3 2 - Exam Right upper extremity: Incision is clean, dry and intact, stairs are good position and condition. Minimal ecchymosis and soft tissue swelling noted. Distal neurovascular exam is intact - Labs CBC & Chem 7: 04/07/19 07:23 04/06/19 16:34 Labs: Abnormal Lab Results - Last 24 Hours (Table) 04/06/19 04/07/19 Range/Units 16:34 07:23 RBC 3.78 L (3.80-5.40) m/uL Hgb 10.6 L (11.4-16.0) gm/dL Hct 33.2 L (34.0-46.0) % Eosinophils # 0.8 H (0-0.7) k/uL Carbon Dioxide 33 H (22-30) mmol/L Glucose 104 H (74-99) mg/dL Total Protein 5.9 L (6.3-8.2) g/dL Albumin 3.4 L (3.5-5.0) g/dL Assessment and Plan Plan: Assessment: Postoperative day #3 status post right total shoulder arthroplasty Plan: Pain control, we'll discharge on her normal pain medication Wound care instructions discussed Utilize arm sling Medical recommendations Discharged to rehab today Time with Patient: Less than 30
--- NOTE | 2019-04-07 11:23 | P.DS ---
Providers Date of admission: 04/04/19 06:31 Expected date of discharge: 04/07/19 Attending physician: Shaji Stephenson Consults: 04/04/19 09:46 Consult Physician Routine Consulting Provider: Peyton Chino Reason/Comments: medical management Do you want consulting provider notified?: Yes Primary care physician: Peyton Chino Hospital Course: Date of admission: 04/04/2019 Date of discharge: 04/07/2019 Admission diagnosis: Status post right total shoulder arthroplasty Discharge diagnosis: Same Attending physician: Dr. Stephenson Surgical procedures: Right total shoulder arthroplasty Brief history: Patient is a 64-year-old female with a history of avascular necrosis involving the right proximal humeral head. At this point patient has failed conservative treatment measures and has opted to proceed with a elective right total shoulder arthroplasty. Hospital course: Details of patient's surgery can be found in operative report. Patient tolerated the procedure well and was subsequently transported to orthopedic floor. Patient's orthopeidc and medical care was provided daily. Patient had daily laboratory tests performed for evaluation of overall blood counts. Patient had daily physical therapy to include strengthening range of motion as well as education with walker ambulation. Patient was treated with Xarelto for their postoperative DVT prophylaxis during their inpatient stay. Patient was noted to have a relatively uneventful postoperative course. Patient reported satisfactory pain control with oral pain medications by postoperative day 0. Patient showed satisfactory progress with physical therapy. Patient moved steadily through the program and had no difficulty meeting the goals by postoperative day 3. Given patient's otherwise satisfactory course and having met physical therapy goals, plan is to discharge patient rehab on postoperative day 3. Discharge condition/disposition: Patient will be discharged rehab in stable condition. Discharge medications: Instructions are given on resumption of patient's normal daily medications per primary care recommendation, in addition patient will be prescribed no new medicatio. Discharge instructions: 1. Wound care and infection precautions, keep incision dry and covered while showering, no lotions, creams, moisturizers. No soaking, tubs, pools, hottubs. Do not scrub over the incision. 2. Utilize arm sling 3. Ice and elevate when necessary. Do not exceed 20 minutes per hour with ice pack. 4. Follow up in office at 2 weeks postop with Iglesia Moran PA-C 5. Follow up with your primary care doctor 7-10 days after discharge. 6. Contact [facility] with any questions, . Procedures: Right total shoulder arthroplasty Patient Condition at Discharge: Good Plan - Discharge Summary Discharge Rx Participant: No New Discharge Prescriptions: No Action Oxymetazoline 0.05% Nasl [place] [Afrin 0.05% Nasal [place]] 2 spray EA NOSTRIL BID PRN PRN Reason: Nasal Congestion Albuterol Inhaler [Ventolin Hfa Inhaler] 1 - 2 puff INHALATION RT-Q6H PRN PRN Reason: Shortness Of Breath Morphine Sulfate ER [Ms Contin] 15 mg PO Q12HR Morphine Sulfate ER [Ms Contin] 30 mg PO Q12HR guaiFENesin [Mucinex] 1,200 mg PO BID Budesonide-Formot 160-4.5 Mcg [Symbicort 160-4.5 Mcg Inhaler] 2 puff INHALATION RT-BID Citalopram Hydrobromide [CeleXA] 30 mg PO QAM QUEtiapine FUMARATE [SEROquel] 200 mg PO HS Gabapentin [Neurontin] 300 mg PO TID Discharge Medication List Albuterol Inhaler [Ventolin Hfa Inhaler] 1 - 2 puff INHALATION RT-Q6H PRN 11/17/18 [History] Budesonide-Formot 160-4.5 Mcg [Symbicort 160-4.5 Mcg Inhaler] 2 puff INHALATION RT-BID 11/17/18 [History] Morphine Sulfate ER [Ms Contin] 15 mg PO Q12HR 11/17/18 [History] Morphine Sulfate ER [Ms Contin] 30 mg PO Q12HR 11/17/18 [History] Oxymetazoline 0.05% Nasl [place] [Afrin 0.05% Nasal [place]] 2 spray EA NOSTRIL BID PRN 11/17/18 [History] guaiFENesin [Mucinex] 1,200 mg PO BID 11/17/18 [History] Citalopram Hydrobromide [CeleXA] 30 mg PO QAM 11/23/18 [History] QUEtiapine FUMARATE [SEROquel] 200 mg PO HS 11/23/18 [History] Gabapentin [Neurontin] 300 mg PO TID 03/28/19 [History] Follow up Appointment(s)/Referral(s): [facility], [NON-STAFF] - As Needed [facility], [NON-STAFF] - As Needed Semaj Moran, PAC [PHYSICIAN FURNITURE AND BEDDING INSPECTOR] - 04/19/19 2:50 pm Activity/Diet/Wound Care/Special Instructions: Orthopedic Discharge Instructions: 1. Wound care and infection precautions, keep incision dry and covered while showering, no lotions, creams, moisturizers. No soaking, pools, hot tubs. Do not scrub over incision. 2. Utilize arm sling 3. Ice and elevate when necessary. Do not exceed 20 minutes per hour with ice pack. 4. Pain meds and anticoagulants per prescription. 5. Pain medication has potential to cause constipation. Increase oral fluid and fiber intake. Contact primary care provider if you have not had a bowel movement within 48 hours after discharge. 6. Follow up in office at 2 weeks postop with Iglesia Moran PA-C 7. Follow up with your primary care doctor 7-10 days after discharge. 8. Contact [facility] with any questions, . Discharge Disposition: TRANSFER TO SNF/ECF
--- NOTE | 2019-04-07 22:09 | PN ---
PROGRESS NOTE DATE OF SERVICE: 04/07/2019. This 64-year-old woman who was admitted after right shoulder arthroplasty, improving significantly. No chest pain. No palpitations. No fever. EXAM: Alert and oriented times three. Pulse 95, blood pressure 118/60. Respirations 16. Temperature 98.7, pulse ox 98% on room air. HEENT: Conjunctivae normal. Neck: No JVD. CARDIOVASCULAR: S1, S2 muffled. RESPIRATION: Breath sounds diminished in the bases. No rhonchi. No crackles. Abdomen is soft, nontender. No mass palpable. LEGS are no edema. No swelling. CENTRAL NERVOUS SYSTEM: No focal deficits. Right shoulder status post arthroplasty. LABS: WBC 9.2, hemoglobin 10.6. ASSESSMENT: 1. Status post right shoulder arthroplasty. 2. Chronic obstructive pulmonary disease. 3. Continued ongoing right shoulder pain. 4. Continued ongoing nicotine dependence. 5. Gastroesophageal reflux disease. 6. History of rheumatoid arthritis. 7. Chronic hypoxic respiratory failure on 2 L home O2. 8. Poor social support. 9. Urinary incontinence history. 10.History of degenerative joint disease and back pain. 11.History of anxiety, bipolar depression. 12.Chronic pain syndrome. RECOMMENDATIONS AND DISCUSSION: Recommend to continue current medications, management and symptomatic treatment. Recommend ECF rehab. Resume the home medications. Follow closely with primary physician and further recommendations to follow. MMODL / IJN: [id number] /
== END 2019-04-07 14:26 | DRG 483 ==
LOC: 2ORMAIN 06:31 → 4SSUR 12:15
PROVIDERS: ADMIT Orthopaedic Surgery; ATTEND Orthopaedic Surgery
PROC: 0RRJ0JZ Replacement of Right Shoulder Joint with Synthetic Substitute, Open Approach (ICD-10-PCS; principal; 2019-04-04 08:00)
DX: M87.9 Osteonecrosis, unspecified (principal); E44.0 Moderate protein-calorie malnutrition; F31.30 Bipolar disorder, current episode depressed, mild or moderate severity, unspecified; J96.11 Chronic respiratory failure with hypoxia; Z68.20 Body mass index [BMI] 20.0-20.9, adult; F17.200 Nicotine dependence, unspecified, uncomplicated; F41.9 Anxiety disorder, unspecified; G89.4 Chronic pain syndrome; J43.9 Emphysema, unspecified; K21.9 Gastro-esophageal reflux disease without esophagitis; M06.9 Rheumatoid arthritis, unspecified; R32 Unspecified urinary incontinence; Z63.8 Other specified problems related to primary support group; Z79.899 Other long term (current) drug therapy; Z96.642 Presence of left artificial hip joint; Z99.81 Dependence on supplemental oxygen; Z98.1 Arthrodesis status; Z79.891 Long term (current) use of opiate analgesic; Z88.1 Allergy status to other antibiotic agents; Z79.51 Long term (current) use of inhaled steroids
CPT/HCPCS: 64415; 71045; 76942; 80053; 85025; 88305; 88311; 94640

== ENCOUNTER 2020-04-09 13:12 | Emergency (ER) | payer MEDICARE, OTHER ==
--- NOTE | 2020-04-09 14:53 | ED ---
Psych HPI - General Chief Complaint: Psychiatric Symptoms Stated Complaint: depression, failure to thrive Time Seen by Provider: 04/09/20 14:10 Source: patient Mode of arrival: wheelchair - History of Present Illness Initial Comments: 65yo female with history of COPD, hx of respiratory failure, depression presenting to the ER today for cc of suicidal thoughts. Patient states she lost her 3rd a few months ago and was sad but then began to get over it because she was considering even before his getting back together with her first . She states that her first then and now she is depressed but denies having suicidal thoughts. Patient states she has been so depressed she cannot eat. Madeleine chest pain or SOB. Denies leg swelling .But states she has anxiety, difficulty sleeping. Patient denies known fevers, but states today particularly she has felt "run down" denies new cough, vomiting, diarrhea. Patient concerned she is starving secondary to not eating much. Denies abdominal pain, headaches, hemoptysis. patient appears nontoxic on arrival but is tearful during history. - Related Data Home Medications Medication Instructions Recorded Confirmed Albuterol Inhaler (Mhu) [Ventolin 1 - 2 puff INHALATION RT-Q6H PRN 11/17/18 03/28/19 Hfa Inhaler (Mhu)] Budesonide-Formot 160-4.5 Mcg 2 puff INHALATION RT-BID 11/17/18 03/28/19 [Symbicort 160-4.5 Mcg Inhaler] Morphine Sulfate ER [Ms Contin] 15 mg PO Q12HR 11/17/18 03/28/19 Morphine Sulfate ER [Ms Contin] 30 mg PO Q12HR 11/17/18 03/28/19 Oxymetazoline 0.05% Nasl [place] 2 spray EA NOSTRIL BID PRN 11/17/18 03/28/19 [Afrin 0.05% Nasal [place]] guaiFENesin [Mucinex] 1,200 mg PO BID 11/17/18 03/28/19 Citalopram Hydrobromide [CeleXA] 30 mg PO QAM 11/23/18 03/28/19 QUEtiapine FUMARATE [SEROquel] 200 mg PO HS 11/23/18 03/28/19 Gabapentin [Neurontin] 300 mg PO TID 03/28/19 03/28/19 Previous Rx's Medication Instructions Recorded Gabapentin [Neurontin] 300 mg PO TID #90 cap 04/07/19 Morphine Sulfate ER [Ms Contin] 15 mg PO Q12HR #30 tab 04/07/19 Morphine Sulfate ER [Ms Contin] 30 mg PO Q12HR #30 tab 04/07/19 Allergies Allergy/AdvReac Type Severity Reaction Status Date / Time methocarbamol [From Robaxin] Allergy Unknown Hives Verified 04/09/20 13:43 Review of Systems ROS Statement: Those systems with pertinent positive or pertinent negative responses have been documented in the HPI. ROS Other: All systems not noted in ROS Statement are negative. Past Medical History Past Medical History: COPD, GERD/Reflux, Rheumatoid Arthritis (RA) Additional Past Medical History / Comment(s): OXYGEN @ 2 1/2 LITERS ATC, HX RES PIRATORY FAILURE., DDD WITH LOWER BACK PAIN, INCONTINENT OF URINE-WEARS PADS., USES CANE. History of Any Multi-Drug Resistant Organisms: None Reported Past Surgical History: Back Surgery Additional Past Surgical History / Comment(s): BREAST BX, THROAT BX, RIGHT KNEE SURGERY, LAMINECTOMY WITH DECOMPRESSION & FUSION L-4 L-5,LT hip replacement Past Anesthesia/Blood Transfusion Reactions: No Reported Reaction Additional Past Anesthesia/Blood Transfusion Reaction / Comment(s): "WOKE UP EARLY",no hx blood transfusion Past Psychological History: Anxiety, Bipolar, Depression Smoking Status: Current every day smoker Past Alcohol Use History: None Reported Past Drug Use History: Marijuana - Past Family History Mother Family Medical History: Cancer Additional Family Medical History / Comment(s): PERITONEAL CANCER Father Family Medical History: Cancer Sister(s) Family Medical History: Cancer Additional Family Medical History / Comment(s): BREAST CANCER General Exam - General Exam Comments Initial Comments: General: The patient is awake and alert, in no distress Eye: +3 mm pupils are equal, round and reactive to light, extra-ocular movements are intact. No nystagmus. There is normal conjunctiva bilaterally. No signs of icterus. Ears, nose, mouth and throat: There are moist mucous membranes and no oral lesions. Neck: The neck is supple, there is no tenderness or JVD. Cardiovascular: There is a regular rate and rhythm. No murmur, rub or gallop is appreciated. Respiratory: Lungs are clear to auscultation, respirations are non-labored, breath sounds are equal. No wheezes, stridor, rales, or rhonchi. Gastrointestinal: Soft, non-distended, non-tender abdomen without masses or organomegaly noted. There is no rebound or guarding present. Musculoskeletal: Normal ROM, no tenderness. Strength 5/5. Sensation intact. Radial pulses equal bilaterally 2+. Neurological: A&O x 3. CN II-XII intact grossly, There are no obvious motor or sensory deficits. Coordination appears grossly intact. Speech is normal. Skin: Skin is warm and dry and no rashes or lesions are noted. Psychiatric: Cooperative, appropriate mood & affect, normal judgment. Limitations: no limitations Course Vital Signs 04/09/20 04/09/20 04/09/20 13:39 16:16 19:15 Temperature 100.7 F H 99 F 98.9 F Pulse Rate 89 78 Respiratory 20 16 Rate Blood Pressure 119/84 122/78 O2 Sat by Pulse 99 98 Oximetry Medical Decision Making - Medical Decision Making Labs stable. Does not appear dry. Patient denies physical complaints. Patient medically cleared EPS> EPs recommended discharge, gave outpatient resources> Patient discharged appearing well. - Lab Data Result diagrams: 04/09/20 15:02 04/09/20 15:02 Lab Results 04/09/20 04/09/20 04/09/20 Range/Units 15:02 15:02 15:02 WBC 7.3 (3.8-10.6) k/uL RBC 4.83 (3.80-5.40) m/uL Hgb 14.5 (11.4-16.0) gm/dL Hct 44.1 (34.0-46.0) % MCV 91.3 (80.0-100.0) fL MCH 30.0 (25.0-35.0) pg MCHC 32.8 (31.0-37.0) g/dL RDW 13.9 (11.5-15.5) % Plt Count 299 (150-450) k/uL MPV 7.6 Neutrophils % 71 % Lymphocytes % 21 % Monocytes % 4 % Eosinophils % 1 % Basophils % 0 % Neutrophils # 5.2 (1.3-7.7) k/uL Lymphocytes # 1.5 (1.0-4.8) k/uL Monocytes # 0.3 (0-1.0) k/uL Eosinophils # 0.1 (0-0.7) k/uL Basophils # 0.0 (0-0.2) k/uL Sodium (137-145) mmol/L Potassium (3.5-5.1) mmol/L Chloride (98-107) mmol/L Carbon Dioxide (22-30) mmol/L Anion Gap mmol/L BUN (7-17) mg/dL Creatinine (0.52-1.04) mg/dL Est GFR (CKD-EPI)AfAm (>60 ml/min/1.73 sqM) Est GFR (CKD-EPI)NonAf (>60 ml/min/1.73 sqM) Glucose (74-99) mg/dL Calcium (8.4-10.2) mg/dL Total Bilirubin (0.2-1.3) mg/dL AST (14-36) U/L ALT (4-34) U/L Alkaline Phosphatase (38-126) U/L Total Protein (6.3-8.2) g/dL Albumin (3.5-5.0) g/dL Urine Color Yellow Urine Appearance Cloudy H (Clear) Urine pH 7.5 (5.0-8.0) Ur Specific [place] 1.013 (1.001-1.035) Urine Protein Negative (Negative) Urine Glucose (UA) Negative (Negative) Urine Ketones 2+ H (Negative) Urine Blood Trace H (Negative) Urine Nitrite Negative (Negative) Urine Bilirubin Negative (Negative) Urine Urobilinogen <2.0 (<2.0) mg/dL Ur Leukocyte Esterase Trace H (Negative) Urine RBC 7 H (0-5) /hpf Urine WBC 2 (0-5) /hpf Ur Squamous Epith Cells <1 (0-4) /hpf Amorphous Sediment Rare H (None) /hpf Urine Mucus Rare H (None) /hpf Urine Opiates Screen Detected H (NotDetected) Ur Oxycodone Screen Not Detected (NotDetected) Urine Methadone Screen Not Detected (NotDetected) Ur Propoxyphene Screen Not Detected (NotDetected) Ur Barbiturates Screen Not Detected (NotDetected) U Tricyclic Antidepress Detected H (NotDetected) Ur Phencyclidine Scrn Not Detected (NotDetected) Ur Amphetamines Screen Not Detected (NotDetected) U Methamphetamines Scrn Not Detected (NotDetected) U Benzodiazepines Scrn Detected H (NotDetected) Urine Cocaine Screen Not Detected (NotDetected) U Marijuana (THC) Screen Detected H (NotDetected) Coronavirus (PCR) Not Detected (Not Detectd) 04/09/20 Range/Units 15:02 WBC (3.8-10.6) k/uL RBC (3.80-5.40) m/uL Hgb (11.4-16.0) gm/dL Hct (34.0-46.0) % MCV (80.0-100.0) fL MCH (25.0-35.0) pg MCHC (31.0-37.0) g/dL RDW (11.5-15.5) % Plt Count (150-450) k/uL MPV Neutrophils % % Lymphocytes % % Monocytes % % Eosinophils % % Basophils % % Neutrophils # (1.3-7.7) k/uL Lymphocytes # (1.0-4.8) k/uL Monocytes # (0-1.0) k/uL Eosinophils # (0-0.7) k/uL Basophils # (0-0.2) k/uL Sodium 141 (137-145) mmol/L Potassium 3.8 (3.5-5.1) mmol/L Chloride 106 (98-107) mmol/L Carbon Dioxide 29 (22-30) mmol/L Anion Gap 6 mmol/L BUN 12 (7-17) mg/dL Creatinine 0.63 (0.52-1.04) mg/dL Est GFR (CKD-EPI)AfAm >90 (>60 ml/min/1.73 sqM) Est GFR (CKD-EPI)NonAf >90 (>60 ml/min/1.73 sqM) Glucose 96 (74-99) mg/dL Calcium 10.3 H (8.4-10.2) mg/dL Total Bilirubin 0.6 (0.2-1.3) mg/dL AST 25 (14-36) U/L ALT 14 (4-34) U/L Alkaline Phosphatase 79 (38-126) U/L Total Protein 7.7 (6.3-8.2) g/dL Albumin 4.8 (3.5-5.0) g/dL Urine Color Urine Appearance (Clear) Urine pH (5.0-8.0) Ur Specific [place] (1.001-1.035) Urine Protein (Negative) Urine Glucose (UA) (Negative) Urine Ketones (Negative) Urine Blood (Negative) Urine Nitrite (Negative) Urine Bilirubin (Negative) Urine Urobilinogen (<2.0) mg/dL Ur Leukocyte Esterase (Negative) Urine RBC (0-5) /hpf Urine WBC (0-5) /hpf Ur Squamous Epith Cells (0-4) /hpf Amorphous Sediment (None) /hpf Urine Mucus (None) /hpf Urine Opiates Screen (NotDetected) Ur Oxycodone Screen (NotDetected) Urine Methadone Screen (NotDetected) Ur Propoxyphene Screen (NotDetected) Ur Barbiturates Screen (NotDetected) U Tricyclic Antidepress (NotDetected) Ur Phencyclidine Scrn (NotDetected) Ur Amphetamines Screen (NotDetected) U Methamphetamines Scrn (NotDetected) U Benzodiazepines Scrn (NotDetected) Urine Cocaine Screen (NotDetected) U Marijuana (THC) Screen (NotDetected) Coronavirus (PCR) (Not Detectd) Disposition Clinical Impression: Depression Disposition: HOME SELF-CARE Condition: Good Instructions (If sedation given, give patient instructions): Depression (ED) Additional Instructions: Please use medication as discussed. Please follow-up with family doctor in the next 2 days. Please return to emergency room if the symptoms increase or worsen or for any other concerns. Is patient prescribed a controlled substance at d/c from ED?: No Referrals: Peyton Chino MD [Primary Care Provider] - 1-2 days Time of Disposition: 19:03
[2020-04-09 15:16] LABS: Basophils % (A) 0 %; Eosinophils # (A) 0.1 k/uL (0-0.7); Eosinophils % (A) 1 %; HCT 44.1 % (34.0-46.0); HGB 14.5 gm/dL (11.4-16.0); Lymphocytes # (A) 1.5 k/uL (1.0-4.8); Lymphocytes % (A) 21 %; MCHC 32.8 g/dL (31.0-37.0); MCV 91.3 fL (80.0-100.0); Mean Platelet Volume 7.6; Monocytes # (A) 0.3 k/uL (0-1.0); Monocytes % (A) 4 %; Neutrophils # (A) 5.2 k/uL (1.3-7.7); Neutrophils % (A) 71 %; Platelet Count 299 k/uL (150-450); RBC 4.83 m/uL (3.80-5.40); RDW 13.9 % (11.5-15.5); WBC 7.3 k/uL (3.8-10.6)
[2020-04-09 15:23] LABS: ALT 14 U/L (4-34); AST 25 U/L (14-36); African American GFR (CKD) >90 (>60 ml/min/1.73 sqM); Albumin 4.8 g/dL (3.5-5.0); Alkaline Phosphatase 79 U/L (38-126); Anion Gap 6 mmol/L; Blood Urea Nitrogen 12 mg/dL (7-17); Calcium 10.3 mg/dL (8.4-10.2); Carbon Dioxide 29 mmol/L (22-30); Chloride 106 mmol/L (98-107); Glucose 96 mg/dL (74-99); Non-African American GFR(CKD) >90 (>60 ml/min/1.73 sqM); Potassium 3.8 mmol/L (3.5-5.1); Sodium 141 mmol/L (137-145); Total Bilirubin 0.6 mg/dL (0.2-1.3); Total Protein 7.7 g/dL (6.3-8.2)
[2020-04-09 15:41] LABS: Amorphous Sediment,Urine Rare /hpf; Appearance,Urine Cloudy (Clear); Bilirubin,Urine Negative (Negative); Blood,Urine Trace (Negative); Color,Urine Yellow; Glucose,Urine (UA) Negative (Negative); Ketones,Urine 2+ (Negative); Leukocyte Esterase,Urine Trace (Negative); Mucus,Urine Rare /hpf; Nitrite,Urine Negative (Negative); PH, Urine 7.5 (5.0-8.0); Protein,Urine Negative (Negative); RBC,Urine 7 /hpf (0-5); Specific Gravity,Urine 1.013 (1.001-1.035); Squamous Epithelial Cell,Urine <1 /hpf (0-4); Urobilinogen,Urine <2.0 mg/dL (<2.0); WBC,Urine 2 /hpf (0-5)
[2020-04-09 15:43] LABS: Amphetamine Screen,Urine Not Detected (NotDetected); Barbiturate Screen,Urine Not Detected (NotDetected); Benzodiazepines Screen,Urine Detected (NotDetected); Cocaine Screen,Urine Not Detected (NotDetected); Methadone Screen, Urine Not Detected (NotDetected); Opiate Screen,Urine Detected (NotDetected); Oxycodone Screen, Urine Not Detected (NotDetected); Phencyclidine Screen,Urine Not Detected (NotDetected); Tricyclic Antidepressant,Urine Detected (NotDetected); Urn Cannabinoid Scrn Detected (NotDetected)
[2020-04-09] MEDS ORDERED: MORPHINE SULFATE 2 MG/ML SYRINGE IM STA (16:46)
[2020-04-09] MEDS ORDERED: NICOTINE 21MG/24HR PATCH TRANSDERM STA (18:19)
[2020-04-09 19:27] VITALS: BP 122/78; PULSE 78; RESP 16; TEMP 98.9
== END 2020-04-09 19:15 | disposition home or self-care (01) ==
LOC: EC 13:12
DX: F31.9 Bipolar disorder, unspecified (principal); J44.9 Chronic obstructive pulmonary disease, unspecified; K21.9 Gastro-esophageal reflux disease without esophagitis; F41.9 Anxiety disorder, unspecified; F17.200 Nicotine dependence, unspecified, uncomplicated; Z79.51 Long term (current) use of inhaled steroids; Z79.899 Other long term (current) drug therapy; Z98.1 Arthrodesis status; Z96.642 Presence of left artificial hip joint; Z20.828 Contact with and (suspected) exposure to other viral communicable diseases
CPT/HCPCS: 99284 ×2; 96372 ×2; 82075; 36415; 80053; 85025; 81001; 80306; 87635; S4990; J2270

== ENCOUNTER → 2020-08-15 | Outpatient (CLI) | payer MEDICARE ==
--- NOTE | 2020-08-19 13:14 | USB ---
Reason for exam: clinical finding. History: Patient is postmenopausal and is nulliparous. Family history of breast cancer in aunt at age 70. Benign excisional biopsy of the right breast, August 28, 1998. Core biopsy of the right breast. Physical Findings: Nurse did not find any significant physical abnormalities on exam. US Breast BILAT Left complete breast ultrasound includes all four quadrants, the retroareolar region and axilla. Finding demonstrates a 10 x 4 x 10mm oval, hypoechoic lesion at 3 o'clock, cyst aspiration recommended. Right complete breast ultrasound includes all four quadrants, the retroareolar region and axilla. Finding demonstrates no cystic or solid lesion seen. Very dense breast tissue. These results were verbally communicated with the patient and result sheet given to the patient on 08/15/20. ASSESSMENT: Suspicious, BI-RAD 4 RECOMMENDATION: Aspiration of the left breast. (4 o'clock) Called Dr. Allred's office with mammographic findings. Biopsy scheduled for 09/05/20 at 12:00. PRELIMINARY REPORT CALLED AND FAXED TO DR. ALLRED ON 08/19/20.
--- NOTE | 2020-08-19 13:15 | MM ---
Reason for exam: clinical finding. Last mammogram was performed 9 years and 9 months ago. History: Patient is postmenopausal and is nulliparous. Family history of breast cancer in aunt at age 70. Benign excisional biopsy of the right breast, August 28, 1998. Core biopsy of the right breast. MG 3D Diag Mammo W/Cad EDU Bilateral CC and MLO view(s) were taken. No prior studies available for comparison. The breast tissue is extremely dense which could obscure a lesion on mammography. There is no discrete abnormality. These results were verbally communicated with the patient and result sheet given to the patient on 08/15/20. ASSESSMENT: Benign, BI-RAD 2 RECOMMENDATION: Routine screening mammogram of both breasts in 1 year.
== END ==
LOC: RADUSWWP 14:11
PROVIDERS: ATTEND Family Medicine
DX: Z78.0 Asymptomatic menopausal state (principal); Z80.3 Family history of malignant neoplasm of breast
CPT/HCPCS: 77066; 76641; G0279; 77062

== ENCOUNTER → 2020-09-05 | Day surgery (SDC) | payer MEDICARE ==
[2020-09-05 12:41] VITALS: RESP 16
[2020-09-05 13:36] VITALS: BP 96/58; PULSE 60; TEMP 98.3
--- NOTE | 2020-09-05 14:16 | USB ---
EXAMINATION TYPE: US biopsy breast VAD LT, MG diagnostic mammo LT wo CAD DATE OF EXAM: 09/05/2020 CLINICAL HISTORY: R92.8 abnormal mammogram. TECHNIQUE: Ultrasound guided core biopsy of left 4:00 breast. COMPARISON: NONE FINDINGS: The procedure of ultrasound guided core biopsy was explained to the patient. Benefits, alternatives, and risks were discussed. An informed consent was then obtained. The patient was placed in supine positioning for imaging and for the procedure. The overlying skin was prepped and draped in usual sterile fashion. Lidocaine buffered with bicarbonate was used as anesthetic into the skin and subcutaneous tissue up to area of concern in the left 4:00 breast. Under ultrasound guidance, a 12-gauge vacuum assisted biopsy gun device was used to obtain 4 core samples. Following this, a biopsy clip was left in lesion. Postprocedural mammogram demonstrates appropriate clip placement. The patient tolerated the procedure well without any immediate complication. The patient was kept in the radiology department for short stay after the procedure and then discharged home in stable condition. IMPRESSION: Successful, uncomplicated ultrasound guided core biopsy of area of concern in the left 4:00 breast, full pathology results to follow. Pathology Results: Benign LEFT BREAST, FOUR O'CLOCK, CORE BIOPSY: Hypocellular and fibrotic fibroadenomatoid hyperplasia. Negative for in situ or invasive carcinoma. Recommendation Follow up ultrasound of the left breast in 6 months. JULIENNE
== END ==
LOC: RADUSWWP 12:03
PROVIDERS: ATTEND Family Medicine
DX: Z88.8 Allergy status to other drugs, medicaments and biological substances (principal)
CPT/HCPCS: 88305; 77065; 19083; A4648; J2001

== ENCOUNTER 2022-04-05 07:52 | Emergency (ER) | payer MEDICARE ==
[2022-04-05 08:00] VITALS: BP 130/72; PULSE 114; RESP 18; TEMP 98.9
--- NOTE | 2022-04-05 08:54 | ED ---
General Adult HPI - General Source: patient, police, RN notes reviewed, old records reviewed Mode of arrival: ambulatory Limitations: no limitations <Grey Roland - Last Filed: 04/05/22 14:16> <Anselmo Conway - Last Filed: 04/06/22 15:25> - General Chief complaint: Psychiatric Symptoms Stated complaint: Petition Time Seen by Provider: 04/05/22 07:55 - History of Present Illness Initial comments: This is a 67-year-old female who presents emergency Department in custody of the police. Patient's neighbor called because she was crying and when please contact the patient stated she wants to . Patient states she has wanted to since she's been in her 20s but since her 2 years ago she thinks about a lot more often. Patient states she is not suicidal she just wishes she would get cancer and diabetes she has nothing to live for and she so sick of being depressed. Patient states she has no plans of killing herself and if she left she feels as though she would be safe. Patient states she's on medication but she thinks she needs an adjustment but she can't find anybody who will listen to her and make a sincere effort getting her her right meds. Patient denies any drug or alcohol use. Patient states she does smoke cigarettes daily. Patient has no physical complaints today. (Grey Roland) - Related Data Home Medications Medication Instructions Recorded Confirmed Albuterol Inhaler [Ventolin Hfa 2 puff INHALATION RT-Q6H PRN 11/17/18 04/05/22 Inhaler] Gabapentin [Neurontin] 300 mg PO DAILY 03/28/19 04/05/22 Acetaminophen [Tylenol Extra 1,500 mg PO Q6H PRN 04/05/22 04/05/22 Strength] Citalopram Hydrobromide [CeleXA] 40 mg PO DAILY 04/05/22 04/05/22 Gabapentin [Neurontin] 600 mg PO HS 04/05/22 04/05/22 Ibuprofen [Motrin Ib] 800 mg PO BID PRN 04/05/22 04/05/22 Oxymetazoline 0.05% Nasl [place] 1 spray EA NOSTRIL BID 04/05/22 04/05/22 [Afrin 0.05% Nasal [place]] QUEtiapine [SEROquel] 200 mg PO HS 04/05/22 04/05/22 Previous Rx's Medication Instructions Recorded Morphine Sulfate ER [Ms Contin] 30 mg PO Q12HR #30 tab 04/07/19 Allergies Allergy/AdvReac Type Severity Reaction Status Date / Time methocarbamol [From Robaxin] Allergy Unknown Hives Verified 04/05/22 14:29 Review of Systems ROS Other: All systems not noted in ROS Statement are negative. <Grey Roland - Last Filed: 04/05/22 14:16> ROS Other: All systems not noted in ROS Statement are negative. <Anselmo Conway - Last Filed: 04/06/22 15:25> ROS Statement: Those systems with pertinent positive or pertinent negative responses have been documented in the HPI. Past Medical History Past Medical History: COPD, GERD/Reflux, Rheumatoid Arthritis (RA) Additional Past Medical History / Comment(s): OXYGEN @ 2 1/2 LITERS at night, HX RESPIRATORY FAILURE., DDD WITH LOWER BACK PAIN, USES CANE as needed. History of Any Multi-Drug Resistant Organisms: None Reported Past Surgical History: Back Surgery, Breast Surgery, Joint Replacement, Orthopedic Surgery Additional Past Surgical History / Comment(s): BREAST BX, THROAT BX, RIGHT KNEE SURGERY, LAMINECTOMY WITH DECOMPRESSION & FUSION L-4 L-5,LT hip replacement, shoulder replacement Past Anesthesia/Blood Transfusion Reactions: No Reported Reaction Additional Past Anesthesia/Blood Transfusion Reaction / Comment(s): "WOKE UP EARLY",no hx blood transfusion Past Psychological History: Anxiety, Bipolar, Depression Smoking Status: Current every day smoker Past Alcohol Use History: None Reported Past Drug Use History: Marijuana - Past Family History Mother Family Medical History: Cancer Additional Family Medical History / Comment(s): PERITONEAL CANCER Father Family Medical History: Cancer Sister(s) Family Medical History: Cancer Additional Family Medical History / Comment(s): BREAST CANCER <Grey Roland - Last Filed: 04/05/22 14:16> General Exam Limitations: no limitations <Grey Roland - Last Filed: 04/05/22 14:16> - General Exam Comments Initial Comments: GENERAL: Patient is well-developed and well-nourished. Patient is nontoxic and well- hydrated and is in no acute distress. ENT: Neck is soft and supple. No significant lymphadenopathy is noted. Oropharynx is clear. Moist mucous membranes. Neck has full range of motion without eliciting any pain. EYES: The sclera were anicteric and conjunctiva were pink and moist. Extraocular movements were intact and pupils were equal round and reactive to light. Eyelids were unremarkable. PULMONARY: Unlabored respirations. Good breath sounds bilaterally. No audible rales rhonchi or wheezing was noted. CARDIOVASCULAR: There is a regular rate and rhythm without any murmurs gallops or rubs. ABDOMEN: Soft and nontender with normal bowel sounds. SKIN: Skin is clear with no lesions or rashes and otherwise unremarkable. NEUROLOGIC: Patient is alert and oriented x3. Cranial nerves II through XII are grossly intact. Motor and sensory are also intact. Normal speech, volume and content. Symmetrical smile. MUSCULOSKELETAL: Normal extremities with adequate strength and full range of motion. LYMPHATICS: No significant lymphadenopathy is noted PSYCHIATRIC: Patient is a very flat affect and appears depressed and is very tearful throughout the interview (Grey Roland) Course Vital Signs 04/05/22 07:53 Temperature 98.9 F Pulse Rate 114 H Respiratory 18 Rate Blood Pressure 130/72 O2 Sat by Pulse 98 Oximetry Medical Decision Making <Grey Roland - Last Filed: 04/05/22 14:16> <Anselmo Conway - Last Filed: 04/06/22 15:25> - Medical Decision Making EPS came down to evaluate the patient and determined the patient needed to be admitted and was going to be admitted to psych floor (Grey Roland) Patient seen by mental health services with plan for transfer for psychiatric admission. Patient reevaluated by myself, Dr. Conway. Patient omits to being depressed, worsening past couple of years. Patient admits not eating or drinking well. Patient admits to not sleeping well. Patient admits to having thoughts of wanting to . Positive clinical certificate completed. (Anselmo Conway) - Lab Data Lab Results 04/05/22 04/06/22 Range/Units 08:23 05:05 Urine Opiates Screen Detected H (NotDetected) Ur Oxycodone Screen Not Detected (NotDetected) Urine Methadone Screen Not Detected (NotDetected) Ur Propoxyphene Screen Not Detected (NotDetected) Ur Barbiturates Screen Not Detected (NotDetected) U Tricyclic Antidepress Detected H (NotDetected) Ur Phencyclidine Scrn Not Detected (NotDetected) Ur Amphetamines Screen Not Detected (NotDetected) U Methamphetamines Scrn Not Detected (NotDetected) U Benzodiazepines Scrn Not Detected (NotDetected) Urine Cocaine Screen Not Detected (NotDetected) U Marijuana (THC) Screen Detected H (NotDetected) Coronavirus (PCR) Not Detected (Not Detectd) Disposition Time of Disposition: 14:17 <Grey Roland - Last Filed: 04/05/22 14:16> Is patient prescribed a controlled substance at d/c from ED?: No <Anselmo Conway - Last Filed: 04/06/22 15:25> Clinical Impression: Depression Disposition: TRANSFER TO PSYCH HOSP/UNIT Referrals: Peyton Chino MD [Primary Care Provider] - 1-2 days
[2022-04-05 08:56] LABS: Amphetamine Screen,Urine Not Detected (NotDetected); Barbiturate Screen,Urine Not Detected (NotDetected); Benzodiazepines Screen,Urine Not Detected (NotDetected); Cocaine Screen,Urine Not Detected (NotDetected); Methadone Screen, Urine Not Detected (NotDetected); Opiate Screen,Urine Detected (NotDetected); Oxycodone Screen, Urine Not Detected (NotDetected); Phencyclidine Screen,Urine Not Detected (NotDetected); Tricyclic Antidepressant,Urine Detected (NotDetected); Urn Cannabinoid Scrn Detected (NotDetected)
[2022-04-05] MEDS ORDERED: LORazepam 1 MG TAB PO STA (14:55)
[2022-04-05] MEDS ORDERED: ACETAMINOPHEN TAB 500 MG TAB PO PRN (15:21)
[2022-04-05] MEDS ORDERED: ALBUTEROL INHALER 60 PUFF/8 GM INHALER (MHU) INHALATION PRN (15:21)
[2022-04-05] MEDS ORDERED: IBUPROFEN 800 MG TAB PO PRN (15:21)
[2022-04-05] MEDS: MORPHINE SULFATE ER 30 MG TABLET PO SCH (20:27)
[2022-04-05] MEDS ORDERED: QUEtiapine 100 MG TAB PO SCH (21:00)
[2022-04-05] MEDS ORDERED: GABAPENTIN 300 MG CAP PO SCH (21:00)
[2022-04-05] MEDS: OXYMETAZOLINE 0.05% NASL SPRAY 1 SPRAY BOTTLE EA NOSTRIL SCH (22:08)
[2022-04-06] MEDS ORDERED: NICOTINE 21MG/24HR PATCH TRANSDERM STA (06:54)
[2022-04-06] MEDS: MORPHINE SULFATE ER 30 MG TABLET PO SCH (08:35)
[2022-04-06] MEDS: OXYMETAZOLINE 0.05% NASL SPRAY 1 SPRAY BOTTLE EA NOSTRIL SCH ×2 (08:37→08:38)
[2022-04-06] MEDS ORDERED: CITALOPRAM HYDROBROMIDE 20 MG TAB PO SCH (09:00)
[2022-04-06] MEDS ORDERED: GABAPENTIN 300 MG CAP PO SCH (09:00)
[2022-04-06] MEDS ORDERED: LORazepam 1 MG TAB PO STA (09:21)
[2022-04-06] MEDS ORDERED: ZIPRASIDONE 20 MG VIAL IM STA (16:31)
== END 2022-04-06 17:53 ==
LOC: EC 07:52 → UNDOADMIN 14:52 → 3MHU 14:52 → EC 04-06 17:53
DX: F31.9 Bipolar disorder, unspecified (principal); J44.9 Chronic obstructive pulmonary disease, unspecified; K21.9 Gastro-esophageal reflux disease without esophagitis; M06.9 Rheumatoid arthritis, unspecified; F41.9 Anxiety disorder, unspecified; F17.200 Nicotine dependence, unspecified, uncomplicated; F12.90 Cannabis use, unspecified, uncomplicated; Z88.8 Allergy status to other drugs, medicaments and biological substances; Z79.51 Long term (current) use of inhaled steroids; Z79.899 Other long term (current) drug therapy; Z20.822 Contact with and (suspected) exposure to COVID-19
CPT/HCPCS: 96372; 82075; 80306; 87635; 99285; S4990; J3486; 99284

== ENCOUNTER 2022-04-16 10:19 | Emergency (ER) | payer MEDICARE ==
[2022-04-16] MEDS ORDERED: GABAPENTIN 300 MG CAP PO STA (10:39)
[2022-04-16] MEDS ORDERED: MORPHINE SULFATE IR 15 MG TABLET PO PRN (10:39)
[2022-04-16] MEDS ORDERED: CITALOPRAM HYDROBROMIDE 20 MG TAB PO STA (10:39)
--- NOTE | 2022-04-16 10:55 | ED ---
SOB HPI - General Chief Complaint: Shortness of Breath Stated Complaint: SOB Time Seen by Provider: 04/16/22 10:26 Source: patient, RN notes reviewed Mode of arrival: ambulatory Limitations: no limitations - History of Present Illness Initial Comments: This is a 67-year-old female who presents to the emergency department for difficulty breathing and right-sided chest wall pain. Symptoms have been present for 2 days and are described as being constant. States that the difficulty breathing is due to the pain. The right side of the chest is very tender and radiates into the back. Denies any injury or history of similar symptoms in the past. States that on an x-ray last year, her primary care provider noticed an abnormal lesion on the right lung. She is crying in the examination room, and saying that she did not take her morning morphine, gabap entin, or Celexa. Denies any fevers, chills, sore throat, cough, palpitations, abdominal pain, nausea, vomiting, diarrhea, or headaches. MD Complaint: shortness of breath, chest pain Onset/Timin -: days(s) Radiation: back - Related Data Home Medications Medication Instructions Recorded Confirmed Gabapentin [Neurontin] 300 mg PO TID 03/28/19 04/16/22 Acetaminophen [Tylenol Extra 1,500 mg PO Q6H PRN 04/05/22 04/16/22 Strength] Citalopram Hydrobromide [CeleXA] 40 mg PO DAILY 04/05/22 04/16/22 Ibuprofen [Motrin Ib] 800 mg PO BID PRN 04/05/22 04/16/22 QUEtiapine [SEROquel] 300 mg PO DIRECTED 04/05/22 04/16/22 Previous Rx's Medication Instructions Recorded Morphine Sulfate ER [Ms Contin] 30 mg PO Q12HR #30 tab 04/07/19 Lidocaine 5% Patch [Lidoderm 5% 1 patch TOPICAL DAILY #30 patch 04/16/22 Patch] Allergies Allergy/AdvReac Type Severity Reaction Status Date / Time methocarbamol [From Robaxin] Allergy Unknown Hives Verified 04/16/22 14:16 Review of Systems ROS Statement: Those systems with pertinent positive or pertinent negative responses have been documented in the HPI. ROS Other: All systems not noted in ROS Statement are negative. Past Medical History Past Medical History: COPD, GERD/Reflux, Rheumatoid Arthritis (RA) Additional Past Medical History / Comment(s): OXYGEN @ 2 1/2 LITERS at night, HX RESPIRATORY FAILURE., DDD WITH LOWER BACK PAIN, USES CANE as needed. History of Any Multi-Drug Resistant Organisms: None Reported Past Surgical History: Back Surgery, Breast Surgery, Joint Replacement, Orthopedic Surgery Additional Past Surgical History / Comment(s): BREAST BX, THROAT BX, RIGHT KNEE SURGERY, LAMINECTOMY WITH DECOMPRESSION & FUSION L-4 L-5,LT hip replacement, shoulder replacement Past Anesthesia/Blood Transfusion Reactions: No Reported Reaction Additional Past Anesthesia/Blood Transfusion Reaction / Comment(s): "WOKE UP EARLY",no hx blood transfusion Past Psychological History: Anxiety, Bipolar, Depression Smoking Status: Current every day smoker Past Alcohol Use History: None Reported Past Drug Use History: Marijuana - Past Family History Mother Family Medical History: Cancer Additional Family Medical History / Comment(s): PERITONEAL CANCER Father Family Medical History: Cancer Sister(s) Family Medical History: Cancer Additional Family Medical History / Comment(s): BREAST CANCER General Exam Limitations: no limitations General appearance: alert, in distress Head exam: Present: atraumatic, normocephalic, normal inspection Respiratory exam: Present: normal lung sounds bilaterally, chest wall tenderness (right). Absent: wheezes, rales, rhonchi Cardiovascular Exam: Present: regular rate, normal rhythm, normal heart sounds. Absent: systolic murmur, diastolic murmur, rubs, gallop, clicks GI/Abdominal exam: Present: soft, normal bowel sounds. Absent: distended, tenderness, guarding, rebound, rigid Neurological exam: Present: alert, oriented X3, CN II-XII intact Psychiatric exam: Present: agitated, anxious Skin exam: Present: warm, dry, intact, normal color. Absent: rash Course Vital Signs 04/16/22 04/16/22 10:23 14:31 Temperature 98.6 F 98 F Pulse Rate 86 70 Respiratory 18 16 Rate Blood Pressure 123/63 124/62 O2 Sat by Pulse 94 L 96 Oximetry Medical Decision Making - Medical Decision Making This is a 67-year-old female who presents to the emergency department for right- sided chest wall pain. She was given her morning medication including morphine, gabapentin, and celaxa, along with a dose of Toradol, which she states dulled the pain. Chest x-ray obtained, and on my interpretation of this I do not identify any infiltrates or consolidations. Lab work reveals a mildly elevated CRP, which may be acute or related to the patient's rheumatoid arthritis. D- dimer was also mildly elevated and a CTA of the chest was subsequently obtained. My interpretation of this reveals a right-sided rib fracture at rib #3. The radiologist also noted cortical buckling to rib #4. There is no evidence of a pulmonary embolus. Case discussed with ED attending Dr. Rodas, who advised that the fracture may be related to the rheumatoid arthritis. She has multiple pain medications at home that she will continue taking. Rx for lidocaine patches provided. I also recommended she alternate with Ibuprofen and Tylenol. She is also instructed to take several deep breaths each day to reduce her risk of developing a secondary pneumonia. Advised that if she gets significantly short of breath, has increasing pain, or starts having coffee-ground emesis, she should return immediately in the event the rib has moved out of place and is causing trauma to a nearby organ. Patient expresses understanding. Return precautions reviewed in depth, the patient is instructed to return to the emergency department with any new, worsening, or concerning symptoms. Patient verbalized understanding. This case was discussed in detail with the attending ED physician. Presentation, findings, and treatment plan discussed in detail as well. - Lab Data Result diagrams: 04/16/22 11:11 04/16/22 11:11 Lab Results 04/16/22 04/16/22 04/16/22 Range/Units 11:11 11:11 11:11 WBC 6.7 (3.8-10.6) k/uL RBC 4.41 (3.80-5.40) m/uL Hgb 13.5 (11.4-16.0) gm/dL Hct 41.1 (34.0-46.0) % MCV 93.1 (80.0-100.0) fL MCH 30.5 (25.0-35.0) pg MCHC 32.8 (31.0-37.0) g/dL RDW 12.7 (11.5-15.5) % Plt Count 344 (150-450) k/uL MPV 8.2 Neutrophils % 71 % Lymphocytes % 22 % Monocytes % 3 % Eosinophils % 3 % Basophils % 1 % Neutrophils # 4.7 (1.3-7.7) k/uL Lymphocytes # 1.5 (1.0-4.8) k/uL Monocytes # 0.2 (0-1.0) k/uL Eosinophils # 0.2 (0-0.7) k/uL Basophils # 0.0 (0-0.2) k/uL PT 10.2 (9.0-12.0) sec INR 0.9 (<1.2) APTT 23.3 (22.0-30.0) sec D-Dimer (<0.60) mg/L FEU Sodium 142 (137-145) mmol/L Potassium 3.9 (3.5-5.1) mmol/L Chloride 106 (98-107) mmol/L Carbon Dioxide 29 (22-30) mmol/L Anion Gap 7 mmol/L BUN 13 (7-17) mg/dL Creatinine 0.63 (0.52-1.04) mg/dL Est GFR (CKD-EPI)AfAm >90 (>60 ml/min/1.73 sqM) Est GFR (CKD-EPI)NonAf >90 (>60 ml/min/1.73 sqM) Glucose 92 (74-99) mg/dL Plasma Lactic Acid Juan F (0.7-2.0) mmol/L Calcium 9.0 (8.4-10.2) mg/dL Total Bilirubin 0.5 (0.2-1.3) mg/dL AST 19 (14-36) U/L ALT 14 (4-34) U/L Alkaline Phosphatase 85 (38-126) U/L Troponin I (0.000-0.034) ng/mL C-Reactive Protein (<1.0) mg/dL Total Protein 6.4 (6.3-8.2) g/dL Albumin 4.3 (3.5-5.0) g/dL Coronavirus (PCR) (Not Detectd) Influenza Type A RNA (Not Detectd) Influenza Type B (PCR) (Not Detectd) 04/16/22 04/16/22 04/16/22 Range/Units 11:11 11:11 11:11 WBC (3.8-10.6) k/uL RBC (3.80-5.40) m/uL Hgb (11.4-16.0) gm/dL Hct (34.0-46.0) % MCV (80.0-100.0) fL MCH (25.0-35.0) pg MCHC (31.0-37.0) g/dL RDW (11.5-15.5) % Plt Count (150-450) k/uL MPV Neutrophils % % Lymphocytes % % Monocytes % % Eosinophils % % Basophils % % Neutrophils # (1.3-7.7) k/uL Lymphocytes # (1.0-4.8) k/uL Monocytes # (0-1.0) k/uL Eosinophils # (0-0.7) k/uL Basophils # (0-0.2) k/uL PT (9.0-12.0) sec INR (<1.2) APTT (22.0-30.0) sec D-Dimer 0.75 H (<0.60) mg/L FEU Sodium (137-145) mmol/L Potassium (3.5-5.1) mmol/L Chloride (98-107) mmol/L Carbon Dioxide (22-30) mmol/L Anion Gap mmol/L BUN (7-17) mg/dL Creatinine (0.52-1.04) mg/dL Est GFR (CKD-EPI)AfAm (>60 ml/min/1.73 sqM) Est GFR (CKD-EPI)NonAf (>60 ml/min/1.73 sqM) Glucose (74-99) mg/dL Plasma Lactic Acid Juan F 0.8 (0.7-2.0) mmol/L Calcium (8.4-10.2) mg/dL Total Bilirubin (0.2-1.3) mg/dL AST (14-36) U/L ALT (4-34) U/L Alkaline Phosphatase (38-126) U/L Troponin I <0.012 (0.000-0.034) ng/mL C-Reactive Protein (<1.0) mg/dL Total Protein (6.3-8.2) g/dL Albumin (3.5-5.0) g/dL Coronavirus (PCR) (Not Detectd) Influenza Type A RNA (Not Detectd) Influenza Type B (PCR) (Not Detectd) 04/16/22 04/16/22 04/16/22 Range/Units 11:11 11:13 11:13 WBC (3.8-10.6) k/uL RBC (3.80-5.40) m/uL Hgb (11.4-16.0) gm/dL Hct (34.0-46.0) % MCV (80.0-100.0) fL MCH (25.0-35.0) pg MCHC (31.0-37.0) g/dL RDW (11.5-15.5) % Plt Count (150-450) k/uL MPV Neutrophils % % Lymphocytes % % Monocytes % % Eosinophils % % Basophils % % Neutrophils # (1.3-7.7) k/uL Lymphocytes # (1.0-4.8) k/uL Monocytes # (0-1.0) k/uL Eosinophils # (0-0.7) k/uL Basophils # (0-0.2) k/uL PT (9.0-12.0) sec INR (<1.2) APTT (22.0-30.0) sec D-Dimer (<0.60) mg/L FEU Sodium (137-145) mmol/L Potassium (3.5-5.1) mmol/L Chloride (98-107) mmol/L Carbon Dioxide (22-30) mmol/L Anion Gap mmol/L BUN (7-17) mg/dL Creatinine (0.52-1.04) mg/dL Est GFR (CKD-EPI)AfAm (>60 ml/min/1.73 sqM) Est GFR (CKD-EPI)NonAf (>60 ml/min/1.73 sqM) Glucose (74-99) mg/dL Plasma Lactic Acid Juan F (0.7-2.0) mmol/L Calcium (8.4-10.2) mg/dL Total Bilirubin (0.2-1.3) mg/dL AST (14-36) U/L ALT (4-34) U/L Alkaline Phosphatase (38-126) U/L Troponin I (0.000-0.034) ng/mL C-Reactive Protein 3.1 H (<1.0) mg/dL Total Protein (6.3-8.2) g/dL Albumin (3.5-5.0) g/dL Coronavirus (PCR) Not Detected (Not Detectd) Influenza Type A RNA Not Detected (Not Detectd) Influenza Type B (PCR) Not Detected (Not Detectd) - EKG Data -: EKG Interpreted by Me EKG Comments: Sinus rhythm. Normal axis. Ventricular rate 80 bpm, OR interval 155 ms, QRS du ration 81 ms, QTC 410 ms. - Radiology Data Radiology results: report reviewed, image reviewed Disposition Clinical Impression: Right rib fracture Disposition: HOME SELF-CARE Instructions (If sedation given, give patient instructions): Rib Fracture (ED) Additional Instructions: Return to the emergency department with any new, worsening, or concerning symptoms. Continue to take your pain medications as prescribed. You should also take ibuprofen and Tylenol for additional relief. You can apply the lidocaine patches daily as needed. Make sure that you're taking several deep breaths each day to reduce your risk of developing a secondary pneumonia. Follow up with your primary care provider as scheduled. Prescriptions: Lidocaine 5% Patch [Lidoderm 5% Patch] 1 patch TOPICAL DAILY #30 patch Is patient prescribed a controlled substance at d/c from ED?: No Referrals: Peyton Chino MD [Primary Care Provider] - 1-2 days
[2022-04-16] MEDS ORDERED: KETOROLAC 15 MG/ML 1 ML VIAL IVP STA (10:56)
--- NOTE | 2022-04-16 11:10 | XR ---
EXAMINATION TYPE: XR chest 2V DATE OF EXAM: 04/16/2022 COMPARISON: 04/07/2019 TECHNIQUE: PA and lateral views submitted. HISTORY: Difficulty breathing FINDINGS: The lungs are clear and there is no pneumothorax, pleural effusion, or focal pneumonia. Postsurgica l change right shoulder arthropathy left shoulder. Sclerosis involving the humeral head could be rela whitney to prior trauma. Diffuse osteopenia. Curvature of the spine. Hyperinflation suggests COPD. Heart size normal. No overt failure. Incidental note made of an azygos fissure. IMPRESSION: 1. No acute process. Correlate for COPD.
[2022-04-16 11:31] LABS: Basophils % (A) 1 %; Eosinophils # (A) 0.2 k/uL (0-0.7); Eosinophils % (A) 3 %; HCT 41.1 % (34.0-46.0); HGB 13.5 gm/dL (11.4-16.0); Lymphocytes # (A) 1.5 k/uL (1.0-4.8); Lymphocytes % (A) 22 %; MCH 30.5 pg (25.0-35.0); MCHC 32.8 g/dL (31.0-37.0); MCV 93.1 fL (80.0-100.0); Mean Platelet Volume 8.2; Monocytes # (A) 0.2 k/uL (0-1.0); Monocytes % (A) 3 %; Neutrophils # (A) 4.7 k/uL (1.3-7.7); Neutrophils % (A) 71 %; Platelet Count 344 k/uL (150-450); RBC 4.41 m/uL (3.80-5.40); RDW 12.7 % (11.5-15.5); WBC 6.7 k/uL (3.8-10.6)
[2022-04-16 11:43] LABS: INR 0.9 (<1.2); Partial Thromboplastin Time 23.3 sec (22.0-30.0); Prothrombin Time 10.2 sec (9.0-12.0)
[2022-04-16 11:44] LABS: ALT 14 U/L (4-34); AST 19 U/L (14-36); African American GFR (CKD) >90 (>60 ml/min/1.73 sqM); Albumin 4.3 g/dL (3.5-5.0); Alkaline Phosphatase 85 U/L (38-126); Anion Gap 7 mmol/L; Blood Urea Nitrogen 13 mg/dL (7-17); Carbon Dioxide 29 mmol/L (22-30); Chloride 106 mmol/L (98-107); Glucose 92 mg/dL (74-99); Non-African American GFR(CKD) >90 (>60 ml/min/1.73 sqM); Potassium 3.9 mmol/L (3.5-5.1); Sodium 142 mmol/L (137-145); Total Bilirubin 0.5 mg/dL (0.2-1.3); Total Protein 6.4 g/dL (6.3-8.2)
--- NOTE | 2022-04-16 13:57 | CT ---
EXAMINATION TYPE: CT chest angio for PE CT DLP: 280.6 mGycm, Automated exposure control for dose reduction was used. DATE OF EXAM: 04/16/2022 1:45 PM COMPARISON: Chest radiograph from same day. CLINICAL INDICATION:Female, 67 years old with history of Chest pain, LILA, elevated d-dimer; CP, LILA, Elevated d-dimer, Hx COPD. Pt not able to raise arms. TECHNIQUE/CONTRAST: CTA scan of the thorax is performed with IV Contrast, patient injected with 100 mL of Isovue 370, pul monary embolism protocol. MIP images are created and reviewed. FINDINGS: Pulmonary Artery: There is no evidence for a filling defect within the pulmonary vasculature to sugge st acute pulmonary embolism. The pulmonary artery is of normal size. Lungs/Pleura: No evidence of focal consolidation, pleural effusion or pneumothorax. Azygous fissure i n the right lung apex. Mild paraseptal emphysema changes in the lung apices. Airway: Large airways are patent. Heart: Heart is within normal limits for size. Others close of the arterial vasculature. Vasculature: No evidence of aortic aneurysm. Atherosclerosis of the arterial vasculature. Mediastinum: No gross evidence of adenopathy. Musculoskeletal: Acute mildly displaced fracture of right rib 3 anteriorly and 4 multilevel disc dege neration changes throughout the spine. No evidence of fracture. There is dextroscoliosis with tones i nspiratory levoscoliosis of the lumbar spine. Postsurgical change the right shoulder. Soft Tissues: Unremarkable. Lower neck: No significant findings. Upper Abdomen right renal cyst. IMPRESSION: 1. No evidence of pulmonary embolism. 2. Acute fracture of right rib 3 anteriorly and cortical buckling of rib 4 also suggestive of fractu re. 3. No evidence of focal airspace consolidation. 4. Mild emphysema. 5. Mild coronary artery atherosclerosis.
[2022-04-16] MEDS ORDERED: LIDOCAINE 5% PATCH TOPICAL SCH (14:15)
[2022-04-16 14:32] VITALS: BP 124/62; PULSE 70; RESP 16; TEMP 98
== END 2022-04-16 14:31 | disposition home or self-care (01) ==
LOC: EC 10:19
DX: S22.31XA Fracture of one rib, right side, initial encounter for closed fracture (principal); J44.9 Chronic obstructive pulmonary disease, unspecified; K21.9 Gastro-esophageal reflux disease without esophagitis; F17.200 Nicotine dependence, unspecified, uncomplicated; F32.A Depression, unspecified; F12.90 Cannabis use, unspecified, uncomplicated; Z20.822 Contact with and (suspected) exposure to COVID-19; Z88.2 Allergy status to sulfonamides; Z79.899 Other long term (current) drug therapy; X58.XXXA Exposure to other specified factors, initial encounter
CPT/HCPCS: 36415; 93005; 85379; 80053; 83605; 84484; 85025; 85610; 85730; 86140; 87502; 87635; 71046; 71275; 99285; 96374; J1885; Q9967